=== PATIENT | female | born 1930 | race Caucasian/White ===

== ENCOUNTER 2017-03-23 15:40 | Inpatient (IN) | payer MEDICARE ==
[2017-03-23] MEDS ORDERED: NS 0.9% 1000 ML* 1,000 ML IV ONE ×2 (16:22→16:32)
[2017-03-23] MEDS ORDERED: Diltiazem IV* 5 MG/ML 5 ML VIAL (for loading dose/IV Push) (25 MG) IV SLOW PU ONE (16:24)
[2017-03-23] MEDS ORDERED: Diltiazem IV VIAL* 125 MG in D5W 100 ML BAG* 100 ML IV ONE ×2 (16:24→19:37)
[2017-03-23 16:44] LABS: Hematocrit 42 % (35-47); Hemoglobin 14.2 g/dl (12.0-16.0); Mean Corpuscular HGB Conc 34 g/dl (31-36); Mean Corpuscular Hemoglobin 31 pg (27-31); Mean Corpuscular Volume 91 fL (80-97); Mean Platelet Volume 11 um3 (7.4-10.4); Red Blood Count 4.57 10^6/ul (4.0-5.4); Red Cell Distribution Width 13 % (10.5-15); White Blood Count 8.8 10^3/ul (3.5-10.8)
[2017-03-23 16:50] LABS: Albumin 3.9 g/dL (3.2-5.2); BUN/Creatinine Ratio 17.4 (8-20); EGFR African American 60.9 (>60); EGFR Non-African American 47.4 (>60); Globulin 3.6 g/dL (2-4); Potassium 3.6 mmol/L (3.5-5.0); Total Bilirubin 0.7 mg/dL (0.2-1.0); Total Protein 7.5 g/dL (6.4-8.9)
[2017-03-23 16:55] LABS: Troponin I 0.05 ng/mL (<0.04)
--- NOTE | 2017-03-23 17:04 | RAD ---
INDICATION: CHF, pneumonia. COMPARISON: Comparison is made with a prior study from October 23, 2015. Correlation is also made with a prior chest x-ray study from March 04, 2013. TECHNIQUE: A portable view of the chest was obtained. FINDINGS: The heart appears mildly enlarged and unchanged. The lungs are underinflated. There is mild prominence of the interstitial markings which are unchanged. No focal infiltrate or pleural effusion is seen. IMPRESSION: NO EVIDENCE FOR ACUTE FINDING.
[2017-03-23 17:20] LABS: TSH (Thyroid Stimulating Horm) 1.52 mcIU/mL (0.34-5.60)
[2017-03-23] MEDS ORDERED: Diltiazem TAB* 30 MG ONE (17:43)
[2017-03-23] MEDS ORDERED: Diltiazem TAB* 30 MG PO ONE (17:46)
--- NOTE | 2017-03-23 17:50 | ED ---
Edith Nielsen Edward, scribed for Silvestre Otero MD on 03/23/17 at 1607 . Dizziness - HPI Summary HPI Summary: 86 y/o female presents to the ED c/o sudden onset DAILEY and dizziness starting earlier today while at a alliance party. Pt took a Tylenol and now her DAILEY is resolved. Pt 's dizziness resolved spontaneously, but per the pt's daughter she had another episode while driving up to the ED. Associated sx: fatigue for the past couple of weeks, SOB, chills and numbness in her feet. Denies weakness in arms and legs , slurred speech, CP and palpitations. Pt has Hypotension recorded in 70's systolically at home. Pt is in AFIB in the ED. Non smoker. No EtOH use. No PMHx DM, heart failure. - History Of Current Complaint Chief Complaint: EDDizziness Stated Complaint: NEAR SYNCOPE Time Seen by Provider: 03/23/17 16:05 Hx Obtained From: Patient Timing: Intermittent Episode Lasting Character: Dizzy Associated Signs And Symptoms: Positive: SOB, Chills, Other: - Back pain, DAILEY, dizziness, lightheadedness, numbness in her feet. Negative: Chest Pain, Fever, Slurred Speech - Allergies/Home Medications Allergies/Adverse Reactions: Allergies Allergy/AdvReac Type Severity Reaction Status Date / Time Ciprofloxacin Allergy Intermediate Rash Verified 01/09/16 18:33 Influenza Vaccines Allergy Unknown Unknown Verified 01/09/16 18:33 Reaction Details Pneumococcal Polysaccharides Allergy Unknown elbow Verified 01/09/16 18:33 [From Pneumovax] swelling Atorvastatin [From Lipitor] AdvReac Intermediate muscle Verified 01/09/16 18:33 cramps, nausea, insomnia Codeine AdvReac Intermediate GI Upset Verified 01/09/16 18:33 PMH/Surg Hx/FS Hx/Imm Hx Previously Healthy: No Endocrine/Hematology History: Reports: Hx Thyroid Disease Denies: Hx Diabetes Cardiovascular History: Reports: Hx Hypertension Respiratory History: Denies: Hx Asthma, Hx Chronic Obstructive Pulmonary Disease (COPD) GI History: Denies: Hx Ulcer Sensory History: Reports: Hx Cataracts, Hx Hearing Aid Opthamlomology History: Reports: Hx Cataracts - Surgical History Surgery Procedure, Year, and Place: tonsillectomy/adenoids at 8 years old. appendectomy 7 years ago. hernia repair. stomach lump - patient stated it was removed when she was around 68 years old. cataract surgery '09 - Immunization History Date of Tetanus Vaccine: Unk Date of Influenza Vaccine: Allergic Infectious Disease History: Denies: Hx Clostridium Difficile, Hx Hepatitis, Hx Human Immunodeficiency Virus (HIV), Hx of Known/Suspected MRSA, Hx Shingles, Hx Tuberculosis, Hx Known/ Suspected VRE, Hx Known/Suspected VRSA, History Other Infectious Disease, Traveled Outside the [place] in Last 30 Days - Family History Known Family History: Positive: Cardiac Disease - Social History Alcohol Use: None Hx Substance Use: No Substance Use Type: Reports: None Hx Tobacco Use: No Smoking Status (MU): Never Smoked Tobacco Review of Systems Positive: Chills Eyes: Negative ENT: Negative Cardiovascular: Negative Positive: Shortness Of Breath Gastrointestinal: Negative Genitourinary: Negative Positive: Myalgia - Mid back pain Skin: Negative Neurological: Other - Dizziness, lightheadedness Positive: Headache, Numbness - Feet. Negative: Syncope, Slurred Speech Psychological: Normal All Other Systems Reviewed And Are Negative: Yes Physical Exam - Summary Physical Exam Summary: The patient is well-nourished in no acute distress and in no acute pain. The skin is warm and dry and skin color reflects adequate perfusion. HEENT: The head is normocephalic and atraumatic. The pupils are equal and reactive. The conjunctivae are clear and without drainage. Nares are patent and without drainage. Mouth reveals dry mucous membranes and the throat is without erythema and exudate. Neck is supple with full range of motion and non-tender. There are no carotid bruits. There is no neck vein distension. Respiratory: Chest is non-tender. Lungs are clear to auscultation and breath sounds are symmetrical and equal. Cardiovascular: Hear is irregular and fast. There is no murmur or rub auscultated. There is no peripheral edema and pulses are symmetrical and equal. Abdomen: The abdomen is soft and non-tender. There are normal bowel sounds heard in all four quadrants and there is no organomegaly palpated. Musculoskeletal: There is no back pain noted. Extremities are non-tender with full range of motion. There is good capillary refill. There is no peripheral edema or calf tenderness elicited. Neurological: Patient is alert and oriented to person, place and time. The patient has symmetrical motor strength in all four extremities. Cranial nerves are grossly intact. Deep tendon reflexes are symmetrical and equal in all four extremities. There are no focal neurological deficits. Psychiatric: The patient has an appropriate affect and does not exhibit any anxiety or depression. Triage Information Reviewed: Yes Vital Signs On Initial Exam: Initial Vitals Temp Pulse Resp BP Pulse Ox 97.5 F 107 20 125/92 97 03/23/17 15:45 03/23/17 15:45 03/23/17 15:45 03/23/17 15:45 03/23/17 15:45 Vital Signs Reviewed: Yes Diagnostics - Vital Signs Vital Signs Temp Pulse Resp BP Pulse Ox 03/23/17 16:01 142 94 03/23/17 16:00 130/82 03/23/17 15:45 97.5 F 107 20 125/92 97 - Laboratory Lab Results: Lab Results 03/23/17 03/23/17 03/23/17 Range/Units 16:20 16:20 16:20 WBC 8.8 (3.5-10.8) 10^3/ul RBC 4.57 (4.0-5.4) 10^6/ul Hgb 14.2 (12.0-16.0) g/dl Hct 42 (35-47) % MCV 91 (80-97) fL MCH 31 (27-31) pg MCHC 34 (31-36) g/dl RDW 13 (10.5-15) % Plt Count 187 (150-450) 10^3/ul MPV 11 H (7.4-10.4) um3 Neut % (Auto) 63.1 (38-83) % Lymph % (Auto) 25.9 (25-47) % [place] % (Auto) 7.9 (1-9) % Eos % (Auto) 2.7 (0-6) % Baso % (Auto) 0.4 (0-2) % Absolute Neuts (auto) 5.5 (1.5-7.7) 10^3/ul Absolute Lymphs (auto) 2.3 (1.0-4.8) 10^3/ul Absolute Monos (auto) 0.7 (0-0.8) 10^3/ul Absolute Eos (auto) 0.2 (0-0.6) 10^3/ul Absolute Basos (auto) 0 (0-0.2) 10^3/ul Absolute Nucleated RBC 0.01 10^3/ul Nucleated RBC % 0.1 INR (Anticoag Therapy) (0.89-1.11) Sodium 138 (133-145) mmol/L Potassium 3.6 (3.5-5.0) mmol/L Chloride 104 (101-111) mmol/L Carbon Dioxide 26 (22-32) mmol/L Anion Gap 8 (2-11) mmol/L BUN 19 (6-24) mg/dL Creatinine 1.09 H (0.51-0.95) mg/dL Est GFR ( Amer) 60.9 (>60) Est GFR (Non-Af Amer) 47.4 (>60) BUN/Creatinine Ratio 17.4 (8-20) Glucose 120 H (70-100) mg/dL Lactic Acid (0.5-2.0) mmol/L Calcium 10.0 (8.6-10.3) mg/dL Magnesium 2.0 (1.9-2.7) mg/dL Total Bilirubin 0.70 (0.2-1.0) mg/dL AST 20 (13-39) U/L ALT 8 (7-52) U/L Alkaline Phosphatase 70 (34-104) U/L Troponin I 0.05 H* (<0.04) ng/mL B-Natriuretic Peptide 539 H ( - 100) pg/mL Total Protein 7.5 (6.4-8.9) g/dL Albumin 3.9 (3.2-5.2) g/dL Globulin 3.6 (2-4) g/dL Albumin/Globulin Ratio 1.1 (1-3) TSH 1.52 (0.34-5.60) mcIU/mL 03/23/17 03/23/17 Range/Units 16:20 16:20 WBC (3.5-10.8) 10^3/ul RBC (4.0-5.4) 10^6/ul Hgb (12.0-16.0) g/dl Hct (35-47) % MCV (80-97) fL MCH (27-31) pg MCHC (31-36) g/dl RDW (10.5-15) % Plt Count (150-450) 10^3/ul MPV (7.4-10.4) um3 Neut % (Auto) (38-83) % Lymph % (Auto) (25-47) % [place] % (Auto) (1-9) % Eos % (Auto) (0-6) % Baso % (Auto) (0-2) % Absolute Neuts (auto) (1.5-7.7) 10^3/ul Absolute Lymphs (auto) (1.0-4.8) 10^3/ul Absolute Monos (auto) (0-0.8) 10^3/ul Absolute Eos (auto) (0-0.6) 10^3/ul Absolute Basos (auto) (0-0.2) 10^3/ul Absolute Nucleated RBC 10^3/ul Nucleated RBC % INR (Anticoag Therapy) 0.93 (0.89-1.11) Sodium (133-145) mmol/L Potassium (3.5-5.0) mmol/L Chloride (101-111) mmol/L Carbon Dioxide (22-32) mmol/L Anion Gap (2-11) mmol/L BUN (6-24) mg/dL Creatinine (0.51-0.95) mg/dL Est GFR ( Amer) (>60) Est GFR (Non-Af Amer) (>60) BUN/Creatinine Ratio (8-20) Glucose (70-100) mg/dL Lactic Acid 1.3 (0.5-2.0) mmol/L Calcium (8.6-10.3) mg/dL Magnesium (1.9-2.7) mg/dL Total Bilirubin (0.2-1.0) mg/dL AST (13-39) U/L ALT (7-52) U/L Alkaline Phosphatase (34-104) U/L Troponin I (<0.04) ng/mL B-Natriuretic Peptide ( - 100) pg/mL Total Protein (6.4-8.9) g/dL Albumin (3.2-5.2) g/dL Globulin (2-4) g/dL Albumin/Globulin Ratio (1-3) TSH (0.34-5.60) mcIU/mL Result Diagrams: 03/23/17 16:20 03/23/17 16:20 Lab Statement: Any lab studies that have been ordered have been reviewed, and results considered in the medical decision making process. - Radiology CXR Xray Interpretation: No Acute Changes - NO EVIDENCE FOR ACUTE FINDINGS. ED PHYSICIAN AGREEABLE Radiology Interpretation Completed By: Radiologist - EKG 1 ST Segment: Non-Specific EKG Interpretation: 15:51 - AFIB @ [address] changes. Re-Evaluation - Re-Evaluation 1 Re-Evaluation Time: 17:25 Comment: Patient and family are agreeable for admission Dizzy Course/Dx - Course Assessment/Plan: 86 y/o female presents to the ED c/o sudden onset DAILEY and dizziness starting earlier today while at a alliance party. Pt took a Tylenol and now her DAILEY is resolved. Pt's dizziness resolved spontaneously, but per the pt's daughter she had another episode while driving up to the ED. Associated sx: fatigue for the past couple of weeks, SOB, chills and numbness in her feet. Denies weakness in arms and legs, slurred speech, CP and palpitations. Pt has Hypotension recorded in 70's systolically at home. Pt is in AFIB in the ED. Non smoker. No EtOH use. No PMHx DM, heart failure. EKG 15:51 - AFIB @ [address] changes. CXR SHOWS NO EVIDENCE FOR ACUTE FINDINGS. ED PHYSICIAN AGREEABLE. Pt's Troponin @ 16:20 is elevated at 0.05. At 17:20, spoke with Dr. Washington who agreed to admit the patient to [facility]. - Diagnoses Differential Diagnosis/HQI/PQRI: Benign Paroxysmal Positional Vertigo, Coronary Artery Disease, Dysrhythmia, Hypovolemia, Myocardial Infarction, Other - Elevated troponin, atrial fibrillation with RVR Provider Diagnoses: Atrial fibrillation with rapid ventricular response - Provider Notifications Discussed Care Of Patient With: Maria Washington Time Discussed With Above Provider: 17:20 Instructed by Provider To: Admit As Inpatient - Critical Care Time Critical Care Time: 30-74 min - 30 minutes Discharge - Discharge Plan Condition: Stable Disposition: ADMITTED TO [facility] Referrals: Meron Heart MD [Primary Care Provider] - The documentation as recorded by the Edith manriquez Edward accurately reflects the service I personally performed and the decisions made by me, Silvestre Otero MD.
[2017-03-23] MEDS ORDERED: Ondansetron INJ* 2 MG/ML VIAL IV PRN (18:18)
[2017-03-23] MEDS ORDERED: Potassium Chlor TAB* 20 MEQ TAB.ER PO ONE (18:18)
[2017-03-23] MEDS ORDERED: Acetaminophen TAB* 325 MG PO PRN (18:18)
[2017-03-23] MEDS ORDERED: Apixaban* 5 MG TAB PO SCH (18:19)
--- NOTE | 2017-03-23 19:00 | RAD ---
INDICATION: Headache. COMPARISON: Comparison is made with a prior CT of the brain from March 11, 2014. TECHNIQUE: Contiguous axial sections of the brain were obtained from the skull base to the vertex without contrast. FINDINGS: The ventricles, cisterns and sulci are enlarged consistent with diffuse atrophy. There are small areas of decreased density in the subcortical and periventricular white matter suggestive of mild chronic small vessel ischemic changes. There is no evidence for hemorrhage. No significant focal osseous abnormality is seen. The visualized portion of the paranasal sinuses and mastoid air cells appear clear. IMPRESSION: NO EVIDENCE FOR ACUTE INTRACRANIAL ABNORMALITY.
[2017-03-23] MEDS ORDERED: Iodixanol* (CONTRAST) 320 MG/ML 100 ML SDV IV ONE (19:47)
[2017-03-23] MEDS ORDERED: Diltiazem DRIP* 100 MG/100 ML ADDV.BAG IVPB SCH (20:00)
[2017-03-23] MEDS ORDERED: Atropine SYRINGE* 0.1 MG/ML 10 ML SYRINGE (1 MG) IV PRN (21:49)
[2017-03-23] MEDS ORDERED: Atropine 1MG/ML INJ* 1 ML VIAL IV PUSH PRN (21:49)
--- NOTE | 2017-03-23 22:09 | HP ---
CC: Dr. Heart; Dr. Luevano * HISTORY AND PHYSICAL: DATE OF ADMISSION: 03/23/17 PRIMARY CARE PROVIDER: Dr. Heart. ATTENDING PHYSICIAN WHILE IN THE HOSPITAL: Dr. Manuel Vega * (report being dictated by Herbert Gonzales NP). CHIEF COMPLAINT: Dizziness. HISTORY OF PRESENTING ILLNESS: Mrs. Wheat is an 86-year-old female patient. She has a history of hypothyroidism, dementia, hypertension, and hyperlipidemia. She comes in today stating that this morning, she felt dizzy, very lightheaded. She was not feeling good. She could feel her heart pounding. She told her daughter and they brought her into the hospital. On interviewing the patient, she says that she does remember feeling like her heart pounding maybe in the last couple of days off and on, she is not sure. She does have mild dementia. She denies having any chest pain. No recent trips or travel. No shortness of breath. No swelling of one leg. No recent surgeries. She ultimately came in and was found to have right bundle branch block, which appeared to be new. In addition to this, was found to be in AFib with RVR, which was new for the patient, so we were asked to evaluate for admission. She denies any change in medications. She denies having any recent fevers or chills, or any nausea, vomiting, or diarrhea. PAST MEDICAL HISTORY: Significant for: 1. Hypothyroidism. 2. Dementia. 3. Hypertension. 4. Hyperlipidemia. PAST SURGICAL HISTORY: She has had an: 1. Appendectomy. 2. Exploratory laparotomy. 3. Hernia repair. 4. Tonsillectomy. MEDICATIONS: Her home meds according to her pill bottles include: 1. Aspirin 81 mg daily. 2. Ramipril 10 mg daily. 3. Amlodipine 2.5 mg daily. 4. Synthroid 75 mcg daily. 5. Namenda 5 mg p.o. b.i.d. ALLERGIES: Her allergies to medications include FLU VACCINE, CIPRO, PNEUMOCOCCAL VACCINE, LIPITOR, and CODEINE. FAMILY HISTORY: Mother had a history of [place]'s chorea. Father had a history of [place]. SOCIAL HISTORY: She does not smoke, does not drink. Surrogate decision maker is her daughter. REVIEW OF SYSTEMS: There is no documented fever. She denied having any significant weight change. There was no ear discharge. She denies having any ear discharge. There is no rhinorrhea. No sore throat. No thyroid enlargement. She denies having any chest pain. There was no orthopnea. There was no nocturnal dyspnea. There was no abdominal pain. No nausea, no vomiting , no dysuria, no frequency. There was no loss of consciousness, no pruritus, and no skin ulcerations. Review of 14 systems completed, all others negative. PHYSICAL EXAMINATION GENERAL: At this time, Mrs. Wheat is an 86-year-old female patient. She is sitting in the ER stretcher. She appears to be well nourished, well nourished. She does not appear to be in any acute distress. VITAL SIGNS: Reveals blood pressure 103/91 with a pulse of 108, respirations 16 , O2 sat 96%, temperature 98.1. Her heart rate now was noted to be rated around 90 to 100. HEENT: Head atraumatic, normocephalic. Eyes: EOMs are intact. Sclerae anicteric. Throat: Oral mucosa appears to be moist. No oropharyngeal erythema. NECK: Supple. LUNGS: Clear to auscultation bilaterally. No wheezes, rales, or rhonchi. HEART: Sounds S1, S2. Irregularly irregular rate. No murmurs, rubs, or gallops. ABDOMEN: Soft, flat, nontender. Bowel sounds present. EXTREMITIES: Pulses were 2+ throughout. She had no peripheral edema. She is able to move all 4 extremities with 5/5 strength. NEUROLOGIC: The patient is awake, alert, oriented x3. Assembly Line Worker were equal. Speech is clear. No gross focal deficits. SKIN: Intact. LABORATORY DATA/DIAGNOSTIC STUDIES: Revealed WBC of 8.8, RBC of 4.57, hemoglobin of 14.2, hematocrit of 42, platelet count of 187,000. INR 0.93. Sodium was 138, potassium of 3.6, chloride of 104, bicarb 26, BUN 19, creatinine of 1.09, glucose of 120. Lactate 1.3. Calcium 10, mag 2.0. Total bili 0.7, AST 20, ALT 8, alk phos 70. Troponin was 0.08. BNP was 539. Albumin was 3.9. TSH was 1.52. She did have a chest x-ray obtained today, report read no evidence for acute findings. She had serial EKGs, most recent EKG does show atrial fibrillation, rate of 103. She does have LVH. It looks like she has J-point elevation and she has inverted T waves in V1, V2, and V3. She has right bundle branch block. The right bundle branch block does appear to be new. She has had biphasic T waves in V2 and V3 and inverted in V1 in the past, but again the right bundle branch block is new, the LVH is not new. Old medical records were reviewed. ASSESSMENT AND PLAN: Mrs. Wheat is an 86-year-old female patient coming into the ER today with complaints of dizziness and palpitations over the last 2 to 3 days. Dizziness happened today. She came into the ER and was evaluated and found to be in atrial fibrillation with rapid ventricular response. She will be admitted under observation status for: 1. Atrial fibrillation with rapid ventricular response. I did touch base with Dr. Luevano. The plan will be to go ahead and put her on diltiazem 30 mg every 6 hours to see if we can control her rate; if not, we will go ahead and I will get her potassium up to 4. Dr. Luevano will evaluate her tomorrow. We may need to consider doing a GABBIE-guided cardioversion. I did put her on Eliquis at 2.5 mg p.o. b.i.d. as her weight is 60 kg and she is over the age of 78 and we will follow with her closely. 2. Hypothyroidism. TSH is stable, continue Synthroid. 3. Dementia. Continue with supportive care and her Namenda. 4. Hypertension. She will be on diltiazem. I am holding her amlodipine because she is on a new calcium channel [place] now, and we will go ahead and continue her ramipril, and we will continue to follow. 5. DVT prophylaxis. She will be on Eliquis. 6. Elevated troponins. Probably demand ischemia, which is probably also driving the right bundle branch block. I will, however, check a D-dimer; if this is elevated, then we would need to consider doing a CTA, obviously paying close attention kidney functions as her baseline creatinine is 1.09 and her GFR is 47. We will monitor. 7. Code status. She is a DNR. 8. Fluids, electrolytes, and nutrition. She can have a heart healthy diet. TIME SPENT: Time spent on the admission, 60 minutes, greater than half the time spent [id number] with the patient obtaining my history and physical, the other half the time spent going over the plan of care with the patient and implementing the plan of care. I did discuss the plan of care with my attending, Dr. Vega; he is in agreement. HERBERT GONZALES NP [id number]/CPS #: [id number] ALEX
[2017-03-23] MEDS: Apixaban* 2.5 MG TAB PO SCH (23:21)
[2017-03-23] MEDS: Memantine TAB* 5 MG PO SCH (23:22)
[2017-03-24] MEDS ORDERED: Diltiazem TAB* 30 MG PO SCH
[2017-03-24 05:33] LABS: Hematocrit 37 % (35-47); Hemoglobin 12.5 g/dl (12.0-16.0); Mean Corpuscular HGB Conc 34 g/dl (31-36); Mean Corpuscular Hemoglobin 31 pg (27-31); Mean Corpuscular Volume 92 fL (80-97); Mean Platelet Volume 11 um3 (7.4-10.4); Red Blood Count 4.01 10^6/ul (4.0-5.4); Red Cell Distribution Width 13 % (10.5-15); White Blood Count 5.6 10^3/ul (3.5-10.8)
[2017-03-24 05:50] LABS: BUN/Creatinine Ratio 19.5 (8-20); Calcium 9.4 mg/dL (8.6-10.3); EGFR African American 84.6 (>60); EGFR Non-African American 65.8 (>60); Potassium 3.9 mmol/L (3.5-5.0)
[2017-03-24] MEDS: Levothyroxine TAB* 75 MCG TAB PO SCH (05:53)
--- NOTE | 2017-03-24 07:30 | RAD ---
INDICATION: Right bundle branch block, new onset atrial fibrillation. COMPARISON: Comparison is made with a prior chest x-ray study from March 23, 2017. TECHNIQUE: A CT angiogram of the chest was performed with intravenous following intravenous injection of 66 ml of Visipaque 320 nonionic contrast. Contiguous axial sections were obtained from the lung apices through the lung bases. Images were reconstructed in the coronal and sagittal planes. FINDINGS: There is relatively homogeneous opacification of the pulmonary arteries. No intraluminal filling defect or pulmonary embolism is seen. The heart is within normal limits in size. There are coronary artery calcifications. No pericardial effusion is present. There is reflux of contrast into the inferior vena cava and hepatic veins suggesting the possibility of right heart failure. The aorta is normal in caliber. There is mild to moderate calcific plaque present. No significant enlarged mediastinal or hilar lymph nodes are seen. There are several small calcified mediastinal and hilar lymph nodes consistent with old granulomatous disease. There is mild prominence of the interstitial markings in the periphery of the lungs most consistent with chronic interstitial lung disease. No focal infiltrate or pleural effusion is seen. There is a [id number] dorsal scoliosis convex toward the right side. No significant focal osseous abnormality is seen. IMPRESSION: 1. NO EVIDENCE FOR PULMONARY EMBOLISM. 2. FINDINGS SUGGESTIVE OF CHRONIC INTERSTITIAL LUNG DISEASE.
[2017-03-24] MEDS: Aspirin Low Dose CHEW TAB* 81 MG PO SCH (09:22)
[2017-03-24] MEDS: Apixaban* 2.5 MG TAB PO SCH ×2 (09:22→21:19)
[2017-03-24] MEDS: Ramipril CAP* 10 MG PO SCH (09:22)
[2017-03-24 11:52] LABS: Urine Bacteria Absent (Absent); Urine Bilirubin Negative (Negative); Urine Glucose Negative (Negative); Urine Nitrite Negative (Negative)
[2017-03-24] MEDS: Amiodarone TAB* 200 MG PO SCH ×2 (12:24→21:20)
--- NOTE | 2017-03-24 12:38 | PN ---
Subjective Date of Service: 03/24/17 Interval History: Patient seen this morning. No complaints at this time. Dizziness and headache have resolved. Understands AFib and conversion back to NSR and plans for next days. Family History: Unchanged from Admission Social History: Unchanged from Admission Past Medical History: Unchanged from Admission Objective Active Medications: Acetaminophen (Tylenol Tab*) 650 mg PO Q4H PRN Amiodarone HCl (Cordarone Tab*) 200 mg PO BID YESSENIA Apixaban (Eliquis) 2.5 mg PO BID YESSENIA Aspirin (Aspirin Low Dose Tab*) 81 mg PO DAILY YESSENIA Levothyroxine Sodium (Synthroid Tab*) 75 mcg PO 0600 YESSENIA Memantine (Namenda Tab*) 5 mg PO BID YESSENIA Ondansetron HCl (Zofran Inj*) 4 mg IV Q6H PRN Ramipril (Altace Cap*) 10 mg PO DAILY YESSENIA Vital Signs 03/23/17 03/23/17 03/23/17 17:25 17:31 17:35 Temperature Pulse Rate 85 88 106 Respiratory 18 19 23 Rate Blood Pressure 101/62 111/70 101/77 (mmHg) O2 Sat by Pulse 97 97 94 Oximetry 03/23/17 03/23/17 03/23/17 20:30 20:31 20:37 Temperature Pulse Rate Respiratory Rate Blood Pressure 109/79 121/76 114/73 (mmHg) O2 Sat by Pulse Oximetry 03/24/17 03/24/17 03/24/17 08:00 09:10 11:21 Temperature 97.7 F Pulse Rate 68 Respiratory 16 18 Rate Blood Pressure 147/66 (mmHg) O2 Sat by Pulse 98 98 Oximetry Oxygen Devices in Use Now: None Appearance: Elderly, F, sitting in bed in NAD Eyes: No Scleral Icterus Ears/Nose/Mouth/Throat: Mucous Membranes Moist Neck: NL Appearance and Movements; NL JVP Respiratory: Symmetrical Chest Expansion and Respiratory Effort, Clear to Auscultation Cardiovascular: NL Sounds; No Murmurs; No JVD, RRR Abdominal: NL Sounds; No Tenderness; No Distention Lymphatic: No Cervical Adenopathy Extremities: No Edema Skin: No Rash or Ulcers Neurological: Alert and Oriented x 3 Result Diagrams: 03/24/17 05:08 03/24/17 05:08 Assess/Plan/Problems-Billing Assessment: Afib with RVR, demand mediated NSTEMI in an 86 yo F with hx of HTN, HLD, hypothyroidism, dementia - Patient Problems (1) Afib Current Visit: Yes Comment: with RVR. Converted to NSR overnight after starting on Dilt gtt. Had some pauses and bradycardia after conversion, longest ~4-5 seconds. Appreciate Cardiology assistance, started on PO Amiodarone by Dr. Luevano. Plan for echo and NST. Continue Eliquis. Continue to monitor on tele. (2) Elevated troponin Current Visit: No Comment: Likely demand from AFib/RVR. Trend to peak. No chest pain. Echo and NST as above. (3) Hypothyroid Current Visit: No Comment: Continue Levothyroxine (4) Dementia Current Visit: No Comment: Continue Namenda (5) Hypertension Current Visit: No Comment: Continue Ramipril. May need to add back Norvasc as well. (6) DVT prophylaxis Current Visit: No Comment: Eliquis Status and Disposition: Inpatient for AFib, troponin elevation
[2017-03-24] MEDS: Memantine TAB* 5 MG PO SCH ×2 (14:01→21:20)
--- NOTE | 2017-03-24 14:34 | CONS ---
CARDIOLOGY CONSULTATION: DATE OF CONSULT: 03/24/17 INDICATION FOR CONSULTATION: Atrial fibrillation. HISTORY OF PRESENT ILLNESS: The patient is a relatively healthy 86-year-old female, who came to the emergency room because of episodes of dizziness. The patient was describing episodes of poor emilia ce and ambulation and her daughters took her blood pressure, her blood pressure was 88/50 and the de cision was to come to the emergency room. On arrival to the emergency room, the patient was in rapi d atrial fibrillation with mild ST segment depressions. The patient was given diltiazem IV and p.o. and ultimately converted to normal sinus rhythm. The patient did have some bradycardia after conve rsion to normal sinus rhythm, but since then has not had any other episodes. In speaking with the p atient today, she is actually doing very well. She says she feels well. She denies any chest pain. She denies any palpitations. She denies any lightheadedness, dizziness, or syncope. PAST MEDICAL HISTORY: Significant for hypothyroidism, dementia, hypertension. PAST SURGICAL HISTORY: Appendectomy, hernia repair, tonsillectomy. OUTPATIENT MEDICATIONS: 1. Aspirin 81 mg a day. 2. Ramipril 10 mg a day. 3. Amlodipine 2.5 mg a day. 4. Synthroid 75 mcg a day. 5. Namenda 10 mg b.i.d. ALLERGIES: She is intolerant of FLU VACCINE, CIPRO, and LIPITOR. FAMILY HISTORY: Mother had a history of [place]'s. Father had a history of myocardial infarctio n. SOCIAL HISTORY: She currently lives at a half-way. She denies tobacco or alcohol use. She has 3 daughters who are involved in her care. PHYSICAL EXAM: Height is 5 feet 7 inches, weight is 131 pounds. Heart rate 66, blood pressure 151/ 67, temperature 98.2, respiratory rate 16, oxygen saturation 99% on room air. Sclerae anicteric. O ropharynx is pink without erythema. Carotids are 2+ without bruits. JVD is normal. Thyroid is nor mal. Cardiac Exam: S1, S2 without any murmurs, rubs or gallops. Lungs: Clear to auscultation kristen aterally. There is no dullness to percussion. Abdomen: Soft, nontender, nondistended with normoact mandy bowel sounds. Extremities: Show no edema. She has 2+ pulses throughout. The patient is awake , alert, and oriented. She moves all 4 extremities equally. DIAGNOSTIC STUDIES/LAB DATA: CBC within normal limits. Chemistries within normal limits. Initial troponin 0.05, peak troponin 2.04. TSH 1.52. IMPRESSION: This is an 86-year-old female who came to the emergency room because of episodes of diz ziness and low blood pressure and was found to be in atrial fibrillation with rapid ventricular resp onse. In speaking with the patient today, she is actually feeling well. She denies any cardiac sym ptoms. For now, my recommendation is that she start on Eliquis, she was started on this yesterday. I did t alk to the patient about treatment of her atrial fibrillation. I think given her symptomatic present ation of her atrial fibrillation, I would like to start amiodarone 200 mg b.i.d. with close observat ion of her heart rate. 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 Because of her elevated troponin level, the patient will undergo a chemical nuclear stress test vin this hospitalization. Further recommendations pending results of her echocardiogram and stress t est. This was discussed with Dr. Asher Ayala. [id number]/[facility] #: [id number]
[2017-03-25] MEDS: Levothyroxine TAB* 75 MCG TAB PO SCH (07:24)
[2017-03-25] MEDS: Apixaban* 2.5 MG TAB PO SCH ×2 (10:59→22:28)
[2017-03-25] MEDS: Aspirin Low Dose CHEW TAB* 81 MG PO SCH (10:59)
[2017-03-25] MEDS: Amiodarone TAB* 200 MG PO SCH ×2 (11:01→22:28)
[2017-03-25] MEDS: Memantine TAB* 5 MG PO SCH ×2 (11:01→22:28)
[2017-03-25] MEDS: Ramipril CAP* 10 MG PO SCH (11:01)
--- NOTE | 2017-03-25 12:33 | ECHO ---
Patient: CARLOS MANN [facility] Rec#: [id number] : 1930 Date: 03/25/2017 Age: 86y Height: 170.18 cm / 67.0 in Weight: 59.42 kg / 131.0 lbs Sex: F BSA: 1.69 Room#: 439 Admit Date#: 03/24/2017 Type: Inpatient Referring: AMAYA GHOTRA MD Reading: Rigoberto Luevano MD Fan Blade Aligner: Mariel Ignacio RDCS CC: Meron Heart MD Transthoracic Echocardiogram Indication: A-fib BP: 147/66 HR: 63 Rhythm: NSR Findings History: Hyopthyroid, dementia, HTN, HLD. Technical Comments: The study quality is fair. The study is technically limited due to patient body habitus. Completed at 1200. Left Ventricle: The left ventricular chamber size is normal. Septal wall hypertrophy is observed. There is increased basal septal hypertrophy noted without evidence of an increased gradient across the left ventricular outflow tract. Mild global hypokinesis of the left ventricle is observed. There is mildly decreased left ventricular systolic function. The estimated ejection fraction is 45-50%. There is no consistent Doppler evidence of clinically significant diastolic dysfunction. Left Atrium: The left atrium is severely dilated. Right Ventricle: The right ventricular cavity size is normal. The right ventricular global systolic function is mildly reduced. Right Atrium: The right atrial cavity size is normal. There is a patent foramen ovale with predominant [id number] shunting. A patent foramen ovale is demonstrated by color Doppler. There is evidence of an atrial septal aneurysm. Aortic Valve: The aortic valve is trileaflet. The aortic valve leaflets are mildly thickened. There is mild aortic regurgitation. There is no evidence of aortic stenosis. Mitral Valve: There is mitral annular calcification. The mitral valve leaflets are moderately thickened. There is mild mitral regurgitation. There is no evidence of mitral stenosis. Tricuspid Valve: The tricuspid valve leaflets are moderately thickened. There is mild to moderate tricuspid regurgitation. The right ventricular systolic pressure is estimated at 19 mmHg. There is evidence that pulmonary hypertension may be underestimated. There is no tricuspid stenosis. Pulmonic Valve: The pulmonic valve appears normal. There is a trace pulmonic regurgitation. There is no pulmonic stenosis. Pericardium: There is no significant pericardial effusion. Aorta: There is no dilatation of the ascending aorta. There is no dilatation of the aortic arch. The aortic root is normal in size. Pulmonary Artery: The main pulmonary artery appears normal. Venous: The inferior vena cava appears normal in size. There is a greater than 50% respiratory change in the inferior vena cava dimension. Conclusions Mild global hypokinesis of the left ventricle is observed. There is mildly decreased left ventricular systolic function. There is increased basal septal hypertrophy noted without evidence of an increased gradient across the left ventricular outflow tract. The estimated ejection fraction is 45-50%. The right ventricular global systolic function is mildly reduced. There is evidence of an atrial septal aneurysm. There is a patent foramen ovale with predominant [id number] shunting. There is mild aortic regurgitation. There is mild mitral regurgitation. There is mild to moderate tricuspid regurgitation. The right ventricular systolic pressure is estimated at 19 mmHg. There is no significant pericardial effusion. Measurements Name Value Normal Range RVIDd (AP) 2D 3.3 cm (0.9 - 2.6) RVDdMajor (2D) 3 cm (2.2 - 4.4) RAd ISD 4CH 4.6 cm (3.4 - 4.9) RA (A4C)W 3.5 cm (2.9 - 4.6) IVSd (2D) 1.6 cm (0.6 - 1) LVPWd (2D) 0.8 cm (0.6 - 1) LVIDd (2D) 4.2 cm (3.6 - 5.4) LVIDs (2D) 2.3 cm - LV FS (2D) 45 % (25 - 45) Aortic Annulus 1.8 cm (1.4 - 2.6) Ao root diameter (2D) 2.9 cm (2.1 - 3.5) Ascending Ao 3.2 cm (2.1 - 3.4) Aortic arch 2.5 cm (1.8 - 3.4) LA dimension (AP) 2D 4.5 cm (2.3 - 3.8) LAd ISD 4CH 5.7 cm (2.9 - 5.3) LA ISD 4CH W 5.1 cm (2.5 - 4.5) Name Value Normal Range LA ESV SP 4CH (A/L) 87 ml - LA ESV SP 2CH (A/L) 78 ml - LA ESV BP (A/L) 87 ml - LA ESV BP (A/L) index 51.75 ml/m2 - LA ESV SP 4CH (MOD) 79 ml - LA ESV SP 2CH (MOD) 74 ml - Name Value Normal Range MV E-wave Vmax 0.64 m/sec - MV deceleration time 289.4 msec - MV A-wave Vmax 0.31 m/sec - MV E:A ratio 2.05 ratio - LV septal e' Vmax 0.03 m/sec - LV lateral e' Vmax 0.05 m/sec - LV E:e' septal ratio 21.33 ratio - LV E:e' lateral ratio 12.8 ratio - Name Value Normal Range AV Vmax 1.1 m/sec - AV VTI 24 cm - AV peak gradient 4.83 mmHg - AV mean gradient 2.8 mmHg - LVOT Vmax 0.82 m/sec - LVOT VTI 17.87 cm - LVOT peak gradient 2.72 mmHg - LVOT mean gradient 1.41 mmHg - AR PHT 549 msec - AR peak gradient 50 mmHg - LILIANA Vmax 0.4 m/sec - Name Value Normal Range TR Vmax 2 m/sec - TR peak gradient 16 mmHg - RAP 3 mmHg - RVSP 19 mmHg - IVC diameter 1.8 cm - Name Value Normal Range PV Vmax 0.47 m/sec - PV peak gradient 0.9 mmHg -
--- NOTE | 2017-03-25 13:13 | PN ---
Subjective Date of Service: 03/25/17 Interval History: No chest pian, cough, SOB, palpitations, dizziness. No new c/o. She was not aware of rapid heartrate when in a fib, c/o headache then. Family History: Unchanged from Admission Social History: Unchanged from Admission Past Medical History: Unchanged from Admission Objective Active Medications: Acetaminophen (Tylenol Tab*) 650 mg PO Q4H PRN PRN Reason: FEVER/PAIN Amiodarone HCl (Cordarone Tab*) 200 mg PO BID [facility] Last Admin: 03/25/17 11:01 Dose: 200 mg Apixaban (Eliquis) 2.5 mg PO BID [facility] Last Admin: 03/25/17 10:59 Dose: 2.5 mg Aspirin (Aspirin Low Dose Tab*) 81 mg PO DAILY [facility] Last Admin: 03/25/17 10:59 Dose: 81 mg Levothyroxine Sodium (Synthroid Tab*) 75 mcg PO 0600 [facility] Last Admin: 03/25/17 07:24 Dose: 75 mcg Memantine (Namenda Tab*) 5 mg PO BID [facility] Last Admin: 03/25/17 11:01 Dose: 5 mg Ondansetron HCl (Zofran Inj*) 4 mg IV Q6H PRN PRN Reason: NAUSEA Ramipril (Altace Cap*) 10 mg PO DAILY [facility] Last Admin: 03/25/17 11:01 Dose: 10 mg Vital Signs 03/25/17 03/25/17 03/25/17 03:48 07:40 08:00 Temperature 97.9 F 98.6 F Pulse Rate 55 58 Respiratory 16 16 16 Rate Blood Pressure 127/60 125/61 (mmHg) O2 Sat by Pulse 97 97 Oximetry Oxygen Devices in Use Now: None Appearance: Alert, partly up in bed. In good spirits. Looks comfortable. Neck: NL Appearance and Movements; NL JVP, No Thyroid Enlargement, Masses Respiratory: Symmetrical Chest Expansion and Respiratory Effort, Clear to Auscultation, Clear to Percussion Cardiovascular: NL Sounds; No Murmurs; No JVD, RRR, No Edema, - Extremities: No Edema, No Clubbing, Cyanosis, - Skin: No Rash or Ulcers, No Nodules or Sclerosis, - Neurological: Alert and Oriented x 3, NL Sensation Result Diagrams: 03/24/17 05:08 09/03/17 05:08 Additional Lab and Data: Lab Results 03/23/17 03/23/17 03/23/17 Range/Units 16:20 16:20 16:20 WBC 8.8 (3.5-10.8) 10^3/ul RBC 4.57 (4.0-5.4) 10^6/ul Hgb 14.2 (12.0-16.0) g/dl Hct 42 (35-47) % MCV 91 (80-97) fL MCH 31 (27-31) pg MCHC 34 (31-36) g/dl RDW 13 (10.5-15) % Plt Count 187 (150-450) 10^3/ul MPV 11 H (7.4-10.4) um3 Neut % (Auto) 63.1 (38-83) % Lymph % (Auto) 25.9 (25-47) % Wood % (Auto) 7.9 (1-9) % Eos % (Auto) 2.7 (0-6) % Baso % (Auto) 0.4 (0-2) % Absolute Neuts (auto) 5.5 (1.5-7.7) 10^3/ul Absolute Lymphs (auto) 2.3 (1.0-4.8) 10^3/ul Absolute Monos (auto) 0.7 (0-0.8) 10^3/ul Absolute Eos (auto) 0.2 (0-0.6) 10^3/ul Absolute Basos (auto) 0 (0-0.2) 10^3/ul Absolute Nucleated RBC 0.01 10^3/ul Nucleated RBC % 0.1 INR (Anticoag Therapy) (0.89-1.11) Sodium 138 (133-145) mmol/L Potassium 3.6 (3.5-5.0) mmol/L Chloride 104 (101-111) mmol/L Carbon Dioxide 26 (22-32) mmol/L Anion Gap 8 (2-11) mmol/L BUN 19 (6-24) mg/dL Creatinine 1.09 H (0.51-0.95) mg/dL Est GFR ( Amer) 60.9 (>60) Est GFR (Non-Af Amer) 47.4 (>60) BUN/Creatinine Ratio 17.4 (8-20) Glucose 120 H (70-100) mg/dL Lactic Acid (0.5-2.0) mmol/L Calcium 10.0 (8.6-10.3) mg/dL Magnesium 2.0 (1.9-2.7) mg/dL Total Bilirubin 0.70 (0.2-1.0) mg/dL AST 20 (13-39) U/L ALT 8 (7-52) U/L Alkaline Phosphatase 70 (34-104) U/L Troponin I 0.05 H* (<0.04) ng/mL B-Natriuretic Peptide 539 H ( - 100) pg/mL Total Protein 7.5 (6.4-8.9) g/dL Albumin 3.9 (3.2-5.2) g/dL Globulin 3.6 (2-4) g/dL Albumin/Globulin Ratio 1.1 (1-3) TSH 1.52 (0.34-5.60) mcIU/mL 03/23/17 03/23/17 Range/Units 16:20 16:20 WBC (3.5-10.8) 10^3/ul RBC (4.0-5.4) 10^6/ul Hgb (12.0-16.0) g/dl Hct (35-47) % MCV (80-97) fL MCH (27-31) pg MCHC (31-36) g/dl RDW (10.5-15) % Plt Count (150-450) 10^3/ul MPV (7.4-10.4) um3 Neut % (Auto) (38-83) % Lymph % (Auto) (25-47) % Wood % (Auto) (1-9) % Eos % (Auto) (0-6) % Baso % (Auto) (0-2) % Absolute Neuts (auto) (1.5-7.7) 10^3/ul Absolute Lymphs (auto) (1.0-4.8) 10^3/ul Absolute Monos (auto) (0-0.8) 10^3/ul Absolute Eos (auto) (0-0.6) 10^3/ul Absolute Basos (auto) (0-0.2) 10^3/ul Absolute Nucleated RBC 10^3/ul Nucleated RBC % INR (Anticoag Therapy) 0.93 (0.89-1.11) Sodium (133-145) mmol/L Potassium (3.5-5.0) mmol/L Chloride (101-111) mmol/L Carbon Dioxide (22-32) mmol/L Anion Gap (2-11) mmol/L BUN (6-24) mg/dL Creatinine (0.51-0.95) mg/dL Est GFR ( Amer) (>60) Est GFR (Non-Af Amer) (>60) BUN/Creatinine Ratio (8-20) Glucose (70-100) mg/dL Lactic Acid 1.3 (0.5-2.0) mmol/L Calcium (8.6-10.3) mg/dL Magnesium (1.9-2.7) mg/dL Total Bilirubin (0.2-1.0) mg/dL AST (13-39) U/L ALT (7-52) U/L Alkaline Phosphatase (34-104) U/L Troponin I (<0.04) ng/mL B-Natriuretic Peptide ( - 100) pg/mL Total Protein (6.4-8.9) g/dL Albumin (3.2-5.2) g/dL Globulin (2-4) g/dL Albumin/Globulin Ratio (1-3) TSH (0.34-5.60) mcIU/mL Assess/Plan/Problems-Billing Assessment: Afib with RVR, demand mediated NSTEMI in an 86 yo F with hx of HTN, HLD, hypothyroidism, dementia - Patient Problems (1) Afib Current Visit: Yes Status: Acute Code(s): I48.91 - UNSPECIFIED ATRIAL FIBRILLATION SNOMED Code(s): 24708009 Comment: with RVR. Converted to NSR overnight after starting on Dilt gtt. Had some pauses and bradycardia after conversion, longest ~4-5 seconds. Started on PO Amiodarone by Dr. Luevano. Plan for echo and NST. Continue Eliquis. Continue to monitor on tele. (2) Elevated troponin Current Visit: No Status: Acute Code(s): R79.89 - OTHER SPECIFIED ABNORMAL FINDINGS OF BLOOD CHEMISTRY SNOMED Code(s): 210753766 Comment: Likely demand from AFib/RVR. Trend to peak. No chest pain. Echo and NST as above. (3) Hypertension Current Visit: No Status: Chronic Code(s): I10 - ESSENTIAL (PRIMARY) HYPERTENSION SNOMED Code(s): 61285641 Comment: Continue Ramipril. Amlodipine on hold. (4) Hypothyroid Current Visit: No Status: Chronic Code(s): E03.9 - HYPOTHYROIDISM, UNSPECIFIED SNOMED Code(s): 30460987 Comment: Continue Levothyroxine. TSH 1.52 03/23/17. Status and Disposition: Inpatient for AFib, troponin elevation
[2017-03-26] MEDS ORDERED: Apixaban* 2.5 MG TAB PO SCH
[2017-03-26] MEDS: Levothyroxine TAB* 75 MCG TAB PO SCH (05:24)
[2017-03-26] MEDS ORDERED: Regadenoson* 0.4 MG/5 ML SYRINGE ONE (07:30)
[2017-03-26] MEDS: Aspirin Low Dose CHEW TAB* 81 MG PO SCH (08:48)
[2017-03-26] MEDS: Memantine TAB* 5 MG PO SCH (08:48)
[2017-03-26] MEDS: Apixaban* 2.5 MG TAB PO SCH (08:49)
[2017-03-26] MEDS: Ramipril CAP* 10 MG PO SCH (08:49)
[2017-03-26] MEDS: Amiodarone TAB* 200 MG PO SCH (08:49)
--- NOTE | 2017-03-26 13:23 | RAD ---
Edited for charges. INDICATION: Atrial fibrillation. COMPARISON: Comparison is made with a prior myocardial perfusion study from December 19, 2010. Technique: A single day myocardial perfusion stress study was performed. Initially the resting study was performed. The patient was given an intravenous injection of 10.3 mCi of technetium 99m tetrofosmin and and the heart was imaged in multiple projections. The patient returned later in the day and under the direction of Dr. Vu, the patient was given intervenous injection of Lexiscan. Subsequently the patient was given intravenous injection of 25.7 mCi of technetium 99m tetrofosmin and the heart was imaged in multiple projections. Images were reconstructed in the axial, sagittal and coronal planes and in a 3- D format. FINDINGS: The cardiac apex appears hypokinetic. There was otherwise normal wall motion. The left ventricular ejection fraction is calculated to be 62%. Review of the images demonstrates demonstrates a small area of decreased activity in the cardiac apex on the post pharmacologic stress images which appears normal on the resting set of images suggestive of a small area of ischemia. IMPRESSION: FINDINGS SUGGESTIVE OF A SMALL AREA OF ISCHEMIA IN THE CARDIAC APEX. ASSESSMENT: Low risk. Based on imaging criteria from ACC/AHA 2002 Guideline Update for the Management of Patients With Chronic Stable Angina Table 23. Noninvasive Risk Stratification. MTDD
--- NOTE | 2017-03-26 15:04 | PN ---
Subjective Date of Service: 03/26/17 Interval History: Collins weak and dizzy af 3-3PM after stress test, has still been NPO since MN. No chest pain, SOB. Family History: Unchanged from Admission Social History: Unchanged from Admission Past Medical History: Unchanged from Admission Objective Active Medications: Acetaminophen (Tylenol Tab*) 650 mg PO Q4H PRN PRN Reason: FEVER/PAIN Amiodarone HCl (Cordarone Tab*) 200 mg PO BID [facility] Last Admin: 03/26/17 08:49 Dose: 200 mg Apixaban (Eliquis) 2.5 mg PO BID [facility] Last Admin: 03/26/17 08:49 Dose: 2.5 mg Aspirin (Aspirin Low Dose Tab*) 81 mg PO DAILY [facility] Last Admin: 03/26/17 08:48 Dose: 81 mg Levothyroxine Sodium (Synthroid Tab*) 75 mcg PO 0600 [facility] Last Admin: 03/26/17 05:24 Dose: 75 mcg Memantine (Namenda Tab*) 5 mg PO BID [facility] Last Admin: 03/26/17 08:48 Dose: 5 mg Ondansetron HCl (Zofran Inj*) 4 mg IV Q6H PRN PRN Reason: NAUSEA Ramipril (Altace Cap*) 10 mg PO DAILY [facility] Last Admin: 03/26/17 08:49 Dose: 10 mg Vital Signs 03/25/17 03/25/17 03/25/17 16:01 19:42 19:50 Temperature 97.9 F 97.7 F Pulse Rate 61 67 Respiratory 16 18 18 Rate Blood Pressure 121/72 150/80 (mmHg) O2 Sat by Pulse 98 99 Oximetry 03/25/17 03/26/17 03/26/17 23:29 03:47 08:00 Temperature 99.2 F 98.2 F Pulse Rate 64 57 Respiratory 16 16 16 Rate Blood Pressure 138/66 120/60 (mmHg) O2 Sat by Pulse 96 97 Oximetry Oxygen Devices in Use Now: None Appearance: Alert, partly up in bed. In good spirits. Looks comfortable. Neck: NL Appearance and Movements; NL JVP, No Thyroid Enlargement, Masses Respiratory: Symmetrical Chest Expansion and Respiratory Effort, Clear to Auscultation, Clear to Percussion Cardiovascular: NL Sounds; No Murmurs; No JVD, RRR, No Edema, - Extremities: No Edema, No Clubbing, Cyanosis, - Skin: No Rash or Ulcers, No Nodules or Sclerosis, - Neurological: Alert and Oriented x 3, NL Sensation Result Diagrams: 03/24/17 05:08 03/24/17 05:08 Additional Lab and Data: Lab Results 03/23/17 03/23/17 03/23/17 Range/Units 16:20 16:20 16:20 WBC 8.8 (3.5-10.8) 10^3/ul RBC 4.57 (4.0-5.4) 10^6/ul Hgb 14.2 (12.0-16.0) g/dl Hct 42 (35-47) % MCV 91 (80-97) fL MCH 31 (27-31) pg MCHC 34 (31-36) g/dl RDW 13 (10.5-15) % Plt Count 187 (150-450) 10^3/ul MPV 11 H (7.4-10.4) um3 Neut % (Auto) 63.1 (38-83) % Lymph % (Auto) 25.9 (25-47) % [place] % (Auto) 7.9 (1-9) % Eos % (Auto) 2.7 (0-6) % Baso % (Auto) 0.4 (0-2) % Absolute Neuts (auto) 5.5 (1.5-7.7) 10^3/ul Absolute Lymphs (auto) 2.3 (1.0-4.8) 10^3/ul Absolute Monos (auto) 0.7 (0-0.8) 10^3/ul Absolute Eos (auto) 0.2 (0-0.6) 10^3/ul Absolute Basos (auto) 0 (0-0.2) 10^3/ul Absolute Nucleated RBC 0.01 10^3/ul Nucleated RBC % 0.1 INR (Anticoag Therapy) (0.89-1.11) Sodium 138 (133-145) mmol/L Potassium 3.6 (3.5-5.0) mmol/L Chloride 104 (101-111) mmol/L Carbon Dioxide 26 (22-32) mmol/L Anion Gap 8 (2-11) mmol/L BUN 19 (6-24) mg/dL Creatinine 1.09 H (0.51-0.95) mg/dL Est GFR ( Amer) 60.9 (>60) Est GFR (Non-Af Amer) 47.4 (>60) BUN/Creatinine Ratio 17.4 (8-20) Glucose 120 H (70-100) mg/dL Lactic Acid (0.5-2.0) mmol/L Calcium 10.0 (8.6-10.3) mg/dL Magnesium 2.0 (1.9-2.7) mg/dL Total Bilirubin 0.70 (0.2-1.0) mg/dL AST 20 (13-39) U/L ALT 8 (7-52) U/L Alkaline Phosphatase 70 (34-104) U/L Troponin I 0.05 H* (<0.04) ng/mL B-Natriuretic Peptide 539 H ( - 100) pg/mL Total Protein 7.5 (6.4-8.9) g/dL Albumin 3.9 (3.2-5.2) g/dL Globulin 3.6 (2-4) g/dL Albumin/Globulin Ratio 1.1 (1-3) TSH 1.52 (0.34-5.60) mcIU/mL 03/23/17 03/23/17 Range/Units 16:20 16:20 WBC (3.5-10.8) 10^3/ul RBC (4.0-5.4) 10^6/ul Hgb (12.0-16.0) g/dl Hct (35-47) % MCV (80-97) fL MCH (27-31) pg MCHC (31-36) g/dl RDW (10.5-15) % Plt Count (150-450) 10^3/ul MPV (7.4-10.4) um3 Neut % (Auto) (38-83) % Lymph % (Auto) (25-47) % [place] % (Auto) (1-9) % Eos % (Auto) (0-6) % Baso % (Auto) (0-2) % Absolute Neuts (auto) (1.5-7.7) 10^3/ul Absolute Lymphs (auto) (1.0-4.8) 10^3/ul Absolute Monos (auto) (0-0.8) 10^3/ul Absolute Eos (auto) (0-0.6) 10^3/ul Absolute Basos (auto) (0-0.2) 10^3/ul Absolute Nucleated RBC 10^3/ul Nucleated RBC % INR (Anticoag Therapy) 0.93 (0.89-1.11) Sodium (133-145) mmol/L Potassium (3.5-5.0) mmol/L Chloride (101-111) mmol/L Carbon Dioxide (22-32) mmol/L Anion Gap (2-11) mmol/L BUN (6-24) mg/dL Creatinine (0.51-0.95) mg/dL Est GFR ( Amer) (>60) Est GFR (Non-Af Amer) (>60) BUN/Creatinine Ratio (8-20) Glucose (70-100) mg/dL Lactic Acid 1.3 (0.5-2.0) mmol/L Calcium (8.6-10.3) mg/dL Magnesium (1.9-2.7) mg/dL Total Bilirubin (0.2-1.0) mg/dL AST (13-39) U/L ALT (7-52) U/L Alkaline Phosphatase (34-104) U/L Troponin I (<0.04) ng/mL B-Natriuretic Peptide ( - 100) pg/mL Total Protein (6.4-8.9) g/dL Albumin (3.2-5.2) g/dL Globulin (2-4) g/dL Albumin/Globulin Ratio (1-3) TSH (0.34-5.60) mcIU/mL Assess/Plan/Problems-Billing Assessment: Afib with RVR, demand mediated NSTEMI in an 86 yo F with hx of HTN, HLD, hypothyroidism, dementia - Patient Problems (1) Afib Current Visit: Yes Status: Acute Code(s): I48.91 - UNSPECIFIED ATRIAL FIBRILLATION SNOMED Code(s): 51505444 Comment: with RVR. Converted to NSR overnight after starting on Dilt gtt. Had some pauses and bradycardia after conversion, longest ~4-5 seconds. Started on PO Amiodarone by Dr. Luevano. Echo showed LVEF 45-50%, mild global hypokinesis. Stress test showed small apical area of ischemia with apical hypokines but nl LVWF. Discussed with Dr. Luevano. Pt will be discharged now, fup with Dr. Markham. Continue Eliquis. (2) Elevated troponin Current Visit: No Status: Acute Code(s): R79.89 - OTHER SPECIFIED ABNORMAL FINDINGS OF BLOOD CHEMISTRY SNOMED Code(s): 132383932 Comment: Likely demand from AFib/RVR. Trend to peak. No chest pain. Echo and NST as above. (3) Hypertension Current Visit: No Status: Chronic Code(s): I10 - ESSENTIAL (PRIMARY) HYPERTENSION SNOMED Code(s): 29588257 Comment: Continue Ramipril. Amlodipine on hold. (4) Hypothyroid Current Visit: No Status: Chronic Code(s): E03.9 - HYPOTHYROIDISM, UNSPECIFIED SNOMED Code(s): 63141714 Comment: Continue Levothyroxine. TSH 1.52 03/23/17. Status and Disposition: Discharge now. Fup Bassem Jeffers.
[2017-03-26 16:16] VITALS: BP 150/72
--- NOTE | 2017-03-26 16:59 | PN ---
Progress Note - Progress Note Date of Service: 03/26/17 Note: Time spent on discharge 50 minutes.
--- NOTE | 2017-03-27 04:10 | DS ---
CC: Dr. Heart; Dr. Luevano * DISCHARGE SUMMARY: DATE OF ADMISSION: DATE OF DISCHARGE: 03/26/17 HISTORY: This 86-year-old woman presented with dizziness. She was lightheaded and felt her heart pounding. It may have occurred for a day or two at home. In the emergency room, she was found to be in atrial fibrillation with rapid ventricular response. There was no change in medication. She does not abuse alcohol or drink excessive caffeine. I do not think she drinks any alcohol at all. She was admitted to our telemetry unit. Her TSH level was 1.52 within normal range. Electrolytes were unremarkable. Creatinine was 0.82. Platelet count was 147, which was borderline low, but consistent with previous readings. Hemoglobin 12.5, white count 5.6. She was placed on intravenous diltiazem. She spontaneously cardioverted within the first 24 hours of her hospital stay and maintains sinus rhythm. She was seen in consultation by Dr. Luevano. She had an echocardiogram on 03/24/17. This showed an ejection fraction of 45% to 50% with mild global hypokinesis of the left ventricle. There are no significant valvular abnormalities. She was started on apixaban and amiodarone. She will follow up with Dr. Luevano. FINAL DIAGNOSES: 1. Paroxysmal atrial fibrillation. 2. Elevated troponin. 3. Hypertension. 4. Hypothyroidism. The patient had a stress test as well, which did not show any significant area of ischemia per Dr. Luevano, although official interpretation is there was a small area of apical ischemia. DISCHARGE MEDICATIONS: 1. Acetaminophen 650 mg every 4 hours p.r.n. 2. Amiodarone 200 mg b.i.d. for 14 days, then once daily. 3. Ramipril 10 mg daily. 4. Apixaban 2.5 mg b.i.d. 5. Levothyroxine 75 mcg daily. 6. Aspirin 81 mg daily. 7. Memantine 5 mg b.i.d. Amlodipine has been discontinued. [id number]/[facility] #: [id number] [facility]
== END 2017-03-26 17:31 | disposition home or self-care (01) | DRG 310 ==
LOC: ED 15:40 → MEDTELE 17:20 → OBSVTOIN 03-25 01:10
PROVIDERS: ADMIT Internal Medicine; ATTEND Internal Medicine
DX: I48.0 Paroxysmal atrial fibrillation (principal); F03.90 Unspecified dementia, unspecified severity, without behavioral disturbance, psychotic disturbance, mood disturbance, and anxiety; I45.10 Unspecified right bundle-branch block; R74.8 Abnormal levels of other serum enzymes; I10 Essential (primary) hypertension; E78.5 Hyperlipidemia, unspecified; Z79.82 Long term (current) use of aspirin; Z79.899 Other long term (current) drug therapy; Z88.5 Allergy status to narcotic agent; Z88.7 Allergy status to serum and vaccine; Z88.8 Allergy status to other drugs, medicaments and biological substances; Z82.0 Family history of epilepsy and other diseases of the nervous system; Z82.49 Family history of ischemic heart disease and other diseases of the circulatory system
CPT/HCPCS: 36415; 70450; 71010; 71275; 78452; 80048; 80053; 81003; 81015; 83605; 83735; 83880; 84443; 84484; 85025; 85379; 85610; 93005; 93017; 93306; 94760; A9270-GY; A9502; G0378; J0461; J2785; Q9967

== ENCOUNTER 2017-04-14 19:55 | Emergency (ER) | payer MEDICARE ==
[2017-04-14 20:40] LABS: Hematocrit 39 % (35-47); Mean Corpuscular HGB Conc 34 g/dl (31-36); Mean Corpuscular Hemoglobin 31 pg (27-31); Mean Corpuscular Volume 92 fL (80-97); Mean Platelet Volume 10 um3 (7.4-10.4); Red Blood Count 4.19 10^6/ul (4.0-5.4); Red Cell Distribution Width 14 % (10.5-15); White Blood Count 6.2 10^3/ul (3.5-10.8)
[2017-04-14 20:52] LABS: Albumin 3.6 g/dL (3.2-5.2); BUN/Creatinine Ratio 13.1 (8-20); Calcium 9.4 mg/dL (8.6-10.3); EGFR African American 53.5 (>60); EGFR Non-African American 41.6 (>60); Globulin 3.2 g/dL (2-4); Magnesium 2.1 mg/dL (1.9-2.7); Potassium 3.6 mmol/L (3.5-5.0); Total Bilirubin 0.4 mg/dL (0.2-1.0); Total Protein 6.8 g/dL (6.4-8.9)
[2017-04-14 20:54] LABS: Troponin I 0.02 ng/mL (<0.04)
[2017-04-14 21:14] LABS: TSH (Thyroid Stimulating Horm) 4.33 mcIU/mL (0.34-5.60)
--- NOTE | 2017-04-14 21:49 | ED ---
Edith Nielsen Edward, scribed for Ant Farmer MD on 04/14/17 at 2009 . Complex/Multi-Sys Presentation - HPI Summary HPI Summary: 86 y/o female presents to the ED c/o fatigue and sleep disturbance starting last night. Pt recently started 2 new medicines a couple of weeks ago. Pt said she could not fall asleep at all last night and slept throughout the day today. The symptoms are not aggravated or alleviated by anything. Associated sx: pt's blood pressure has been up and down throughout the day. PMHx thyroid disease. 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 - History Of Current Complaint Chief Complaint: EDGeneral Time Seen by Provider: 04/14/17 20:02 Hx Obtained From: Patient Onset/Duration: Lasting Days Associated Signs And Symptoms: Positive: Other - Fatigue, sleep disturbance, blood pressure up and down - Allergies/Home Medications Allergies/Adverse Reactions: Allergies Allergy/AdvReac Type Severity Reaction Status Date / Time Ciprofloxacin Allergy Intermediate Rash Verified 04/14/17 19:58 Influenza Vaccines Allergy Unknown Unknown Verified 04/14/17 19:58 Reaction Details Pneumococcal Polysaccharides Allergy Unknown elbow Verified 04/14/17 19:58 [From Pneumovax] swelling Atorvastatin [From Lipitor] AdvReac Intermediate muscle Verified 04/14/17 19:58 cramps, nausea, insomnia Codeine AdvReac Intermediate GI Upset Verified 04/14/17 19:58 PMH/Surg Hx/FS Hx/Imm Hx Previously Healthy: No Endocrine/Hematology History: Reports: Hx Thyroid Disease Denies: Hx Diabetes Cardiovascular History: Reports: Hx Hypercholesterolemia, Hx Hypertension Denies: Hx Coronary Artery Disease, Hx Myocardial Infarction, Hx Valvular Heart Disease Respiratory History: Denies: Hx Asthma, Hx Chronic Obstructive Pulmonary Disease (COPD) GI History: Denies: Hx Ulcer Sensory History: Reports: Hx Cataracts, Hx Contacts or Glasses - readers only for fine print, Hx Hearing Aid Opthamlomology History: Reports: Hx Cataracts, Hx Contacts or Glasses - readers only for fine print - Surgical History Surgery Procedure, Year, and Place: tonsillectomy/adenoids at 8 years old. appendectomy 7 years ago. hernia repair. stomach lump - patient stated it was removed when she was around 68 years old. cataract surgery ' - Immunization History Date of Tetanus Vaccine: Unk Date of Influenza Vaccine: Allergic Infectious Disease History: No Infectious Disease History: Denies: Hx Clostridium Difficile, Hx Hepatitis, Hx Human Immunodeficiency Virus (HIV), Hx of Known/Suspected MRSA, Hx Shingles, Hx Tuberculosis, Hx Known/ Suspected VRE, Hx Known/Suspected VRSA, History Other Infectious Disease, Traveled Outside the [place] in Last 30 Days - Family History Known Family History: Positive: Cardiac Disease - Social History Alcohol Use: None Hx Substance Use: No Substance Use Type: Reports: None Hx Tobacco Use: No Smoking Status (MU): Never Smoked Tobacco Have You Smoked in the Last Year: No Review of Systems Positive: Fatigue Eyes: Negative ENT: Negative Cardiovascular: Other - Blood pressure has been up and down today Respiratory: Negative Gastrointestinal: Negative Genitourinary: Negative Musculoskeletal: Negative Skin: Negative Neurological: Negative Psychological: Other - Sleep distur All Other Systems Reviewed And Are Negative: Yes Physical Exam Triage Information Reviewed: Yes Vital Signs On Initial Exam: Initial Vitals Temp Pulse Resp BP Pulse Ox 98.7 F 76 16 154/76 96 04/14/17 19:58 04/14/17 19:58 04/14/17 19:58 04/14/17 19:58 04/14/17 19:58 Vital Signs Reviewed: Yes Appearance: Positive: Well-Appearing, No Pain Distress Skin: Positive: Warm, Skin Color Reflects Adequate Perfusion, Dry Head/Face: Positive: Normal Head/Face Inspection Eyes: Positive: Normal ENT: Positive: Normal ENT inspection Neck: Positive: Supple, Nontender Respiratory/Lung Sounds: Positive: Clear to Auscultation, Breath Sounds Present Cardiovascular: Positive: RRR Abdomen Description: Positive: Nontender, Soft Bowel Sounds: Positive: Present Musculoskeletal: Positive: Normal Neurological: Positive: Normal Psychiatric: Positive: Normal Diagnostics - Vital Signs Vital Signs Temp Pulse Resp BP Pulse Ox 04/14/17 19:58 98.7 F 76 16 154/76 96 - Laboratory Lab Results: Lab Results 04/14/17 04/14/17 04/14/17 Range/Units 20:31 20:31 20:31 WBC 6.2 (3.5-10.8) 10^3/ul RBC 4.19 (4.0-5.4) 10^6/ul Hgb 13.0 (12.0-16.0) g/dl Hct 39 (35-47) % MCV 92 (80-97) fL MCH 31 (27-31) pg MCHC 34 (31-36) g/dl RDW 14 (10.5-15) % Plt Count 191 (150-450) 10^3/ul MPV 10 (7.4-10.4) um3 Neut % (Auto) 50.4 (38-83) % Lymph % (Auto) 27.9 (25-47) % [place] % (Auto) 12.4 H (1-9) % Eos % (Auto) 8.2 H (0-6) % Baso % (Auto) 1.1 (0-2) % Absolute Neuts (auto) 3.2 (1.5-7.7) 10^3/ul Absolute Lymphs (auto) 1.7 (1.0-4.8) 10^3/ul Absolute Monos (auto) 0.8 (0-0.8) 10^3/ul Absolute Eos (auto) 0.5 (0-0.6) 10^3/ul Absolute Basos (auto) 0.1 (0-0.2) 10^3/ul Absolute Nucleated RBC 0.01 10^3/ul Nucleated RBC % 0.1 INR (Anticoag Therapy) (0.89-1.11) Sodium 137 (133-145) mmol/L Potassium 3.6 (3.5-5.0) mmol/L Chloride 103 (101-111) mmol/L Carbon Dioxide 28 (22-32) mmol/L Anion Gap 6 (2-11) mmol/L BUN 16 (6-24) mg/dL Creatinine 1.22 H (0.51-0.95) mg/dL Est GFR ( Amer) 53.5 (>60) Est GFR (Non-Af Amer) 41.6 (>60) BUN/Creatinine Ratio 13.1 (8-20) Glucose 114 H (70-100) mg/dL Lactic Acid 1.0 (0.5-2.0) mmol/L Calcium 9.4 (8.6-10.3) mg/dL Magnesium 2.1 (1.9-2.7) mg/dL Total Bilirubin 0.40 (0.2-1.0) mg/dL AST 16 (13-39) U/L ALT 9 (7-52) U/L Alkaline Phosphatase 78 (34-104) U/L Troponin I 0.02 (<0.04) ng/mL Total Protein 6.8 (6.4-8.9) g/dL Albumin 3.6 (3.2-5.2) g/dL Globulin 3.2 (2-4) g/dL Albumin/Globulin Ratio 1.1 (1-3) TSH 4.33 (0.34-5.60) mcIU/mL 04/14/17 Range/Units 20:31 WBC (3.5-10.8) 10^3/ul RBC (4.0-5.4) 10^6/ul Hgb (12.0-16.0) g/dl Hct (35-47) % MCV (80-97) fL MCH (27-31) pg MCHC (31-36) g/dl RDW (10.5-15) % Plt Count (150-450) 10^3/ul MPV (7.4-10.4) um3 Neut % (Auto) (38-83) % Lymph % (Auto) (25-47) % [place] % (Auto) (1-9) % Eos % (Auto) (0-6) % Baso % (Auto) (0-2) % Absolute Neuts (auto) (1.5-7.7) 10^3/ul Absolute Lymphs (auto) (1.0-4.8) 10^3/ul Absolute Monos (auto) (0-0.8) 10^3/ul Absolute Eos (auto) (0-0.6) 10^3/ul Absolute Basos (auto) (0-0.2) 10^3/ul Absolute Nucleated RBC 10^3/ul Nucleated RBC % INR (Anticoag Therapy) 1.03 (0.89-1.11) Sodium (133-145) mmol/L Potassium (3.5-5.0) mmol/L Chloride (101-111) mmol/L Carbon Dioxide (22-32) mmol/L Anion Gap (2-11) mmol/L BUN (6-24) mg/dL Creatinine (0.51-0.95) mg/dL Est GFR ( Amer) (>60) Est GFR (Non-Af Amer) (>60) BUN/Creatinine Ratio (8-20) Glucose (70-100) mg/dL Lactic Acid (0.5-2.0) mmol/L Calcium (8.6-10.3) mg/dL Magnesium (1.9-2.7) mg/dL Total Bilirubin (0.2-1.0) mg/dL AST (13-39) U/L ALT (7-52) U/L Alkaline Phosphatase (34-104) U/L Troponin I (<0.04) ng/mL Total Protein (6.4-8.9) g/dL Albumin (3.2-5.2) g/dL Globulin (2-4) g/dL Albumin/Globulin Ratio (1-3) TSH (0.34-5.60) mcIU/mL Result Diagrams: 04/14/17 20:31 04/14/17 20:31 Lab Statement: Any lab studies that have been ordered have been reviewed, and results considered in the medical decision making process. - EKG 1 EKG Interpretation: 20:51 - SR @ 60 BPM. LVH. INCOMPLETE RBBB EKG Comparison: No Significant Change - 03/24/17 Re-Evaluation - Re-Evaluation 1 Re-Evaluation Time: 21:33 Complex Multi-Symp Course/Dx Course Of Treatment: Ms. Wheat was unable to sleep last night and then slep most of the day today. Her daughter took her BP a lot and it varied quite a bit. She feels fine now and her W/U was negative. She is going home and will F/ U with Dr. Méndez. - Diagnoses Provider Diagnoses: Insomnia Discharge - Discharge Plan Condition: Stable Disposition: HOME Patient Education Materials: Insomnia (ED) Referrals: Shamika Méndez MD [Medical Doctor] - 3 Days (PLEASE F/U IN 2-3 DAYS) The documentation as recorded by the Edith manriquez Edward accurately reflects the service I personally performed and the decisions made by me, Ant Farmer MD.
[2017-04-14 22:34] VITALS: BP 145/70
== END 2017-04-14 22:34 | disposition home or self-care (01) ==
LOC: ED 19:55
DX: G47.00 Insomnia, unspecified (principal)
CPT/HCPCS: 36415; 80053; 83605; 83735; 84443; 84484; 85025; 85610; 93005; 99283

== ENCOUNTER 2018-02-01 20:01 | Inpatient (IN) | payer MEDICARE ==
[2018-02-01] MEDS ORDERED: Ondansetron INJ* 2 MG/ML VIAL ONE (20:06)
[2018-02-01] MEDS ORDERED: Morphine VIAL* 4 MG/ML VIAL (1 ml vial) IV ONE ×2 (20:06→21:19)
[2018-02-01] MEDS ORDERED: fentaNYL* 50 MCG/ML 2 ML VIAL (100 MCG VIAL) IV ONE (20:08)
--- NOTE | 2018-02-01 20:08 | ED ---
Abdominal Pain/Female - HPI Summary HPI Summary: Pt is 87 y/o F c/o very sudden epigastric abdominal pain onset ~1930. She describes pain as tearing and rates it an 11/10, per EMS. Associated Sx: N/V. Denies: CP, back pain. Modifying factors: None. Pt notes she was very sad following hearing news that her friend . Pain onset shortly after. Pt had high blood pressure (170/90) en route to ED. - History of Current Complaint Stated Complaint: HIGH BLOOD PRESSURE Time Seen by Provider: 02/01/18 20:03 Hx Obtained From: Patient Onset/Duration: Sudden Onset, Lasting Hours, Still Present Timing: Constant Pain Intensity: 11 Pain Scale Used: 0-10 Numeric Location: Epigastric Radiates: No Character: Tearing Alleviating Factor(s): Nothing Associated Signs and Symptoms: Positive: Nausea, Vomiting. Negative: Chest Pain , Back Pain Allergies/Adverse Reactions: Allergies Allergy/AdvReac Type Severity Reaction Status Date / Time MS Ciprofloxacin Allergy Intermediate Rash Verified 04/14/17 19:58 [Ciprofloxacin] MS Influenza Vaccines Allergy Unknown Unknown Verified 04/14/17 19:58 [Influenza Vaccines] Reaction Details MS Pneumococcal Allergy Unknown elbow Verified 04/14/17 19:58 Polysaccharides swelling [From Pneumovax] MS Atorvastatin AdvReac Intermediate muscle Verified 04/14/17 19:58 [From Lipitor] cramps, nausea, insomnia MS Codeine [Codeine] AdvReac Intermediate GI Upset Verified 04/14/17 19:58 PMH/Surg Hx/FS Hx/Imm Hx Previously Healthy: No Endocrine/Hematology History: Reports: Hx Thyroid Disease Denies: Hx Diabetes Cardiovascular History: Reports: Hx Hypercholesterolemia, Hx Hypertension Denies: Hx Coronary Artery Disease, Hx Myocardial Infarction, Hx Valvular Heart Disease Respiratory History: Denies: Hx Asthma, Hx Chronic Obstructive Pulmonary Disease (COPD) GI History: Denies: Hx Ulcer Sensory History: Reports: Hx Cataracts, Hx Contacts or Glasses - readers only for fine print, Hx Hearing Aid Opthamlomology History: Reports: Hx Cataracts, Hx Contacts or Glasses - readers only for fine print - Surgical History Surgery Procedure, Year, and Place: tonsillectomy/adenoids at 8 years old. appendectomy 7 years ago. hernia repair. stomach lump - patient stated it was removed when she was around 68 years old. cataract surgery '09 - Immunization History Date of Tetanus Vaccine: Unk Date of Influenza Vaccine: Allergic Infectious Disease History: Denies: Hx Clostridium Difficile, Hx Hepatitis, Hx Human Immunodeficiency Virus (HIV), Hx of Known/Suspected MRSA, Hx Shingles, Hx Tuberculosis, Hx Known/ Suspected VRE, Hx Known/Suspected VRSA, History Other Infectious Disease, Traveled Outside the [place] in Last 30 Days - Family History Known Family History: Positive: Cardiac Disease - Social History Occupation: Retired Lives: With Family Alcohol Use: None Hx Substance Use: No Substance Use Type: Reports: None Hx Tobacco Use: No Smoking Status (MU): Never Smoked Tobacco Have You Smoked in the Last Year: No Review of Systems Negative: Chest Pain Positive: Abdominal Pain, Vomiting - at home, Nausea - at home, Other - bloated Positive: Headache All Other Systems Reviewed And Are Negative: Yes Physical Exam - Summary Physical Exam Summary: Appearance: Well-appearing, Well-nourished, lying in bed comfortably Skin: Warm, dry, no obvious rash Eyes: sclera anicteric, no conjunctival pallor ENT: mucous membranes moist, pharynx appears normal Neck: Supple, nontender Respiratory: Clear to auscultation, no signs of respiratory distress Cardiovascular: Normal S1, S2. No murmurs. Normal distal pulses in tibial and radial bilaterally. Abdomen: general tenderness, no peritoneal signs, no pulsatile masses, normal active bowel sounds present, femoral pulses 2+ and symmetric Musculoskeletal: Normal, Strength/ROM Intact Neurological: A&Ox3, awake and alert, mentation is normal, speech is fluent and appropriate Psychiatric: affect is normal, does not appear anxious or depressed Triage Information Reviewed: Yes Vital Signs Reviewed: Yes Diagnostics - Laboratory Result Diagrams: 02/01/18 20:21 02/01/18 20:21 Lab Statement: Any lab studies that have been ordered have been reviewed, and results considered in the medical decision making process. - CT A/P CT CT Interpretation: Positive (See Comments) - IMPRESSION: 1. There is calcified atherosclerosis but no pathologic aneurysmal dilatation of the abdominal aorta. Further characterization cannot be made in the absence of intravascular contrast. 2. Pathologically dilated small bowel up to 3.5 cm in diameter with multiple air-fluid levels. Please correlate to clinical signs and symptoms of partial small bowel CT Interpretation Completed By: Radiologist - provider has reviewed this report. - EKG 2019 Cardiac Rate: NL - 61 bpm EKG Interpretation: Ventricular premature complex, RBBB EKG Comparison: Other - From 04/14/17, unchanged except diffuse T-wave inversions Abdominal Pain Fem Course/Dx - Diagnoses Provider Diagnoses: Bowel obstruction - Provider Notifications Discussed Care Of Patient With: Alberto Montero - hospitalist Time Discussed With Above Provider: 21:23 Instructed by Provider To: Admit As Inpatient Discharge - Sign-Out/Discharge Documenting (check all that apply): Patient Departure - admit - Discharge Plan Condition: Stable Disposition: ADMITTED TO [facility] - Billing Disposition and Condition Condition: STABLE Disposition: Admitted to [facility]
[2018-02-01 20:30] LABS: ABS Basophils 0.1 10^3/ul (0-0.2); ABS Eosinophils 0.2 10^3/ul (0-0.6); ABS Lymphocytes 1.7 10^3/ul (1.0-4.8); ABS Monocytes 0.7 10^3/ul (0-0.8); ABS Neutrophils 7.8 10^3/ul (1.5-7.7); ABS Nucleated RBC 0 10^3/ul; Eosinophil % 2.3 % (0-6); Hematocrit 37 % (35-47); Hemoglobin 12.6 g/dl (12.0-16.0); Lymphocyte % 15.7 % (25-47); Mean Corpuscular HGB Conc 34 g/dl (31-36); Mean Corpuscular Hemoglobin 31 pg (27-31); Mean Corpuscular Volume 93 fL (80-97); Mean Platelet Volume 10.7 um3 (7.4-10.4); Nucleated Red Blood Cells % 0; Platelet Count 160 10^3/ul (150-450); Red Blood Count 4.01 10^6/ul (4.00-5.40); Red Cell Distribution Width 13 % (10.5-15); White Blood Count 10.5 10^3/ul (3.5-10.8)
--- NOTE | 2018-02-01 20:48 | RAD ---
CLINICAL HISTORY: Upper abdominal pain and hypertension COMPARISON: CT abdomen pelvis October 23, 2015 TECHNIQUE: Noncontrast CT examination of the abdomen and pelvis from the lung bases through the initial tuberosities. FINDINGS: Unless otherwise specified comparisons below reference the October 23, 2015 CT. VISUALIZED LUNG BASES: Similar to the prior CT examination there is interlobular thickening as well as centrilobular emphysematous changes. There is ectatic dilatation of the medium and small airways. ABDOMEN AND PELVIS: Evaluation of the solid organs and vasculature is limited without intravenous contrast. The liver, spleen, pancreas and adrenal glands are grossly normal in appearance. The gallbladder is normal. The kidneys are normal in appearance without focal mass, calcification or signs of hydronephrosis. Evaluation of the gastrointestinal tract is limited without oral contrast. At the low midline abdomen the small bowel is dilated up to 3.4 cm in diameter and there are multiple air-fluid levels (axial image 101 for example). More distally the small bowel is decompressed, though it is difficult to discern the approximate transition point. The colon as gas and stool in the lumen but is mostly decompressed. There is no free intraperitoneal air. There is no gross retroperitoneal or mesenteric lymphadenopathy. The pelvic viscera is normal in appearance. The lower thoracic and abdominal aorta exhibit coarse atherosclerotic calcification. There is no pathologic aneurysmal dilatation. Dissection cannot be determined in the absence of intravascular contrast. Degenerative changes include multilevel loss of intervertebral disc height involving the lower thoracic and lumbar spine and vacuum disc phenomenon at L5/S1 at L3/L4..There are no sinister bone lesions. IMPRESSION: 1. There is calcified atherosclerosis but no pathologic aneurysmal dilatation of the abdominal aorta. Further characterization cannot be made in the absence of intravascular contrast. 2. Pathologically dilated small bowel up to 3.5 cm in diameter with multiple air-fluid levels. Please correlate to clinical signs and symptoms of partial small bowel obstruction. 3. Additional chronic and degenerative changes described in the body the report.
[2018-02-01 20:49] LABS: EGFR Non-African American 56.1 (>60)
[2018-02-01] MEDS ORDERED: Morphine VIAL* 4 MG/ML VIAL (1 ml vial) IV PRN ×2 (21:31→21:55)
[2018-02-01] MEDS ORDERED: Ondansetron INJ* 2 MG/ML VIAL IV PRN (21:31)
--- NOTE | 2018-02-02 00:07 | HP ---
CC: Dr. Heart * [facility] MEDICINE HISTORY AND PHYSICAL: DATE OF ADMISSION: 02/01/18 PRIMARY CARE PHYSICIAN: Dr. Heart. ATTENDING PHYSICIAN: Alberto Montero MD * (dictation provided by Jackie Ponce NP). CHIEF COMPLAINT: Abdominal pain. HISTORY OF PRESENT ILLNESS: Ms. Wheat is an 87-year-old female with a past medical history of hypertension, hypothyroidism, atrial fibrillation on Eliquis who presents today to the hospital with concern for sudden onset of abdominal pain at about 5 o'clock this afternoon. The patient states she has a history of appendectomy and hernia repair and "lump removal from the abdomen." She developed sudden onset of this pain at about 5 o'clock. She said it was quite severe and in the mid to epigastric region. She went out briefly with her daughter but felt that she was too ill and then returned home shortly thereafter. Her last bowel movement was this morning with small formed stool. She had nausea and vomiting x1 after the onset of the pain. She denies any chest pain. She has had no shortness of breath. In the emergency room, Ms. Wheat had a CT of the abdomen, which showed a partial small bowel obstruction. Her labs are unremarkable. Her vitals are stable. PAST MEDICAL HISTORY: 1. AFib, on Eliquis and amiodarone. 2. Hypothyroidism. 3. Hypertension. PAST SURGICAL HISTORY: 1. Appendectomy. 2. Hernia repair. 3. History of "lump removal" from abdomen. MEDICATIONS: 1. Levothyroxine 75 mcg p.o. daily. 2. Aspirin 81 mg p.o. daily. 3. Apixaban 2.5 mg p.o. b.i.d. 4. Amiodarone 200 mg p.o. b.i.d. 5. Ramipril 10 mg p.o. daily. 6. Namenda 5 mg p.o. b.i.d. ALLERGIES: CIPROFLOXACIN, INFLUENZA VACCINES, PNEUMOVAX, ATORVASTATIN, and CODEINE. FAMILY HISTORY: The patient reports her dad related to a heart attack at 75. Her mom at 79 but she cannot recall the cause of . SOCIAL HISTORY: No report of alcohol, tobacco, or drug use. The patient lives alone. She states her daughter Kerry Roth will be the healthcare proxy. REVIEW OF SYSTEMS: A 14-point review of systems was completed with Ms. Wheat and all those not mentioned above were negative. PHYSICAL EXAMINATION GENERAL: Ms. Wheat is sitting up in the bed. She is in no acute distress. VITAL SIGNS: Temperature 98.3, pulse rate 84, respiratory rate 20, O2 saturation 99% on room air, blood pressure 165/97. LUNGS: Clear to auscultation bilaterally with no accessory muscle use and good aeration. HEART: S1, S2. No murmur, rub, or gallop and regular. ABDOMEN: Soft. There is some mild tenderness in the epigastric region and over along the upper right flank. The bowel sounds are positive. EXTREMITIES: No cyanosis. No edema. NEURO: She is alert. She is oriented x3. She moves all extremities equally. There is no facial asymmetry or focal weakness. Extraocular movements are intact. SKIN: Intact. DIAGNOSTIC STUDIES/LAB DATA: Sodium 138, potassium 3.8, chloride 106, serum bicarbonate 26, BUN 17, creatinine 0.94, glucose 100. Lactic acid 0.7, lipase 21. WBC 10.5, hemoglobin 12.6, hematocrit 37, platelet count 160,000. Abdomen and pelvis CT is read as follows: There is calcified atherosclerosis but no pathological aneurysm or dilatation of the abdominal aorta. Pathologically dilated small bowel up to 3.5 cm in diameter with multiple air-fluid levels. ASSESSMENT/PLAN: Ms. Wheat is an 87-year-old female with past medical history of atrial fibrillation, on amiodarone and Eliquis, as well as hypothyroidism and multiple abdominal surgeries who presents today to the hospital after a sudden onset of abdominal pain with nausea and vomiting, found to have a partial small bowel obstruction. Our plans are for inpatient admission as I anticipate her length of stay to be greater than 2 days for the followin. Partial small bowel obstruction. The patient will be admitted. She will be n.p.o. except for medications, which will consist just of her amiodarone and levothyroxine. I have encouraged her to ambulate as possible to encourage bowel motility. She will have morphine available p.r.n. for pain. We will consult with Dr. Mathew and I will make a call to her at the completion of this dictation. 2. Hypothyroidism. Continue levothyroxine. 3. Atrial fibrillation. The patient has atrial fibrillation with no history of cerebrovascular accident. Plan to continue amiodarone but we will hold Eliquis in the event that surgery is needed. 4. Hypertension. Hold ramipril. 5. Code status is DNR and a form was completed with her and with her daughter at the bedside. 6. Disposition to medical floor. TIME SPENT: Approximately 60 minutes were spent on the admission of this patient, more than half the time spent with the patient at the bedside reviewing the events leading up to this hospitalization, performing the physical examination, and reviewing my plan of care. JACKIE PONCE NP [id number]/CPS #: [id number] ALEX
[2018-02-02 04:34] LABS: Urine Appearance Clear; Urine Blood Negative (Negative); Urine Color Yellow; Urine Ketones Negative (Negative); Urine Protein Negative (Negative); Urine Red Blood Cell Absent (Absent); Urine Urobilinogen Negative (Negative); Urine White Blood Cell 1+(6-10/hpf) (Absent)
[2018-02-02] MEDS: Levothyroxine TAB* 75 MCG TAB PO SCH (05:54)
[2018-02-02 06:10] LABS: ABS Basophils 0 10^3/ul (0-0.2); ABS Eosinophils 0.2 10^3/ul (0-0.6); ABS Lymphocytes 2.2 10^3/ul (1.0-4.8); ABS Monocytes 0.7 10^3/ul (0-0.8); ABS Neutrophils 3.2 10^3/ul (1.5-7.7); ABS Nucleated RBC 0 10^3/ul; Eosinophil % 2.7 % (0-6); Hematocrit 34 % (35-47); Hemoglobin 11.7 g/dl (12.0-16.0); Lymphocyte % 34.7 % (25-47); Mean Corpuscular HGB Conc 35 g/dl (31-36); Mean Corpuscular Hemoglobin 32 pg (27-31); Mean Corpuscular Volume 92 fL (80-97); Mean Platelet Volume 10.8 um3 (7.4-10.4); Nucleated Red Blood Cells % 0.1; Platelet Count 140 10^3/ul (150-450); Red Blood Count 3.68 10^6/ul (4.00-5.40); Red Cell Distribution Width 14 % (10.5-15); White Blood Count 6.3 10^3/ul (3.5-10.8)
[2018-02-02 06:25] LABS: EGFR Non-African American 53.4 (>60)
[2018-02-02] MEDS ORDERED: Amiodarone TAB* 200 MG PO SCH (09:00)
--- NOTE | 2018-02-02 10:09 | CONSULT ---
Consult Consult: Surgery Consult. Asked by Jackie Ponce to follow a pt. with pSBO. Ms. Wheat is an 87 y.o. female who reports she started to feel vaguely ill yesterday. She came home from a shopping trip with her daughter, took a nap, then woke up with "excruciating" upper abdominal pain. When her daughter checked on her she was "doubled over in pain" so she called 911. She has not been passing flatus since then till this morning when she passed a little; she had not had a BM; she vomited a lot of black stuff before she got picked up by the ambulance. She denies fever or dysuia. This has never happened before. In the ER a CT showed dilated loops of SB and she was admitted with pSBO. She feels better this morning. She has a past surgical h/o appendectomy (in 3rd grade); hernia repair (while in school); excision subcutaneous mass. PMHx: afib, HTN, "thyroid problems" Meds: see med rec., includes anticoagulation ALL: cipro, flu vaccines SH: neg tob, EtOH, IVDA FH: CAD PE: general: WDWN elderly female in NAD Vital Signs 02/01/18 02/01/18 02/01/18 20:05 20:06 20:12 Temperature 98.3 F Pulse Rate 84 64 67 Respiratory 20 16 15 Rate Blood Pressure 165/97 165/97 (mmHg) O2 Sat by Pulse 99 95 95 Oximetry 02/01/18 02/01/18 02/01/18 20:41 21:00 21:11 Temperature Pulse Rate 59 59 53 Respiratory 15 17 19 Rate Blood Pressure 164/85 176/75 (mmHg) O2 Sat by Pulse 91 90 98 Oximetry 02/01/18 02/01/18 02/01/18 21:41 22:00 22:12 Temperature Pulse Rate 56 61 58 Respiratory 16 17 13 Rate Blood Pressure 181/70 173/82 (mmHg) O2 Sat by Pulse 98 98 99 Oximetry 02/01/18 02/01/18 02/01/18 22:45 23:00 23:27 Temperature 98.8 F Pulse Rate 67 54 78 Respiratory 21 16 20 Rate Blood Pressure 205/98 158/78 (mmHg) O2 Sat by Pulse 98 98 99 Oximetry 02/02/18 02/02/18 02/02/18 00:00 03:10 07:29 Temperature 98.8 F 99.5 F 97.5 F Pulse Rate 78 53 45 Respiratory 20 16 16 Rate Blood Pressure 158/78 123/51 120/45 (mmHg) O2 Sat by Pulse 99 94 97 Oximetry 02/02/18 08:47 Temperature Pulse Rate 43 Respiratory Rate Blood Pressure (mmHg) O2 Sat by Pulse Oximetry HEENT: anicteric sclerae, moist oral mucosa, neg cervical adenopathy lungs: clear heart: reg abd: some BS, slightly distended, non-tender; scar in RLQ, well healed with some contracture. ext: neg. cyanosis Intake & Output 02/01/18 02/02/18 02/02/18 22:59 06:59 14:59 Intake Total 0 Output Total 0 Balance 0 Weight 120 lb 134 lb 9.6 oz Intake: Oral 0 Output: Urine 0 Other: Estimated Void Medium # Voids 1 Laboratory Results - last 24 hr 02/01/18 02/01/18 02/01/18 20:21 20:21 20:21 WBC 10.5 RBC 4.01 Hgb 12.6 Hct 37 MCV 93 MCH 31 MCHC 34 RDW 13 Plt Count 160 MPV 10.7 H Neut % (Auto) 74.3 Lymph % (Auto) 15.7 L [place] % (Auto) 6.8 Eos % (Auto) 2.3 Baso % (Auto) 0.9 Absolute Neuts (auto) 7.8 H Absolute Lymphs (auto) 1.7 Absolute Monos (auto) 0.7 Absolute Eos (auto) 0.2 Absolute Basos (auto) 0.1 Absolute Nucleated RBC 0 Nucleated RBC % 0 Sodium 138 Potassium 3.8 Chloride 106 Carbon Dioxide 26 Anion Gap 6 BUN 17 Creatinine 0.94 Est GFR ( Amer) 67.8 Est GFR (Non-Af Amer) 56.1 BUN/Creatinine Ratio 18.1 Glucose 100 Lactic Acid 0.7 Calcium 9.5 Total Bilirubin 0.60 AST 16 ALT 6 L Alkaline Phosphatase 57 Total Protein 6.9 Albumin 3.6 Globulin 3.3 Albumin/Globulin Ratio 1.1 Lipase 21 Urine Color Urine Appearance Urine pH Ur Specific [place] Urine Protein Urine Ketones Urine Blood Urine Nitrate Urine Bilirubin Urine Urobilinogen Ur Leukocyte Esterase Urine WBC (Auto) Urine RBC (Auto) Ur Squamous Epith Cells Urine Bacteria Urine Glucose Blood Type Antibody Screen 02/01/18 02/02/18 02/02/18 20:21 04:07 05:51 WBC 6.3 RBC 3.68 L Hgb 11.7 L Hct 34 L MCV 92 MCH 32 H MCHC 35 RDW 14 Plt Count 140 L MPV 10.8 H Neut % (Auto) 51.8 Lymph % (Auto) 34.7 [place] % (Auto) 10.4 H Eos % (Auto) 2.7 Baso % (Auto) 0.4 Absolute Neuts (auto) 3.2 Absolute Lymphs (auto) 2.2 Absolute Monos (auto) 0.7 Absolute Eos (auto) 0.2 Absolute Basos (auto) 0 Absolute Nucleated RBC 0 Nucleated RBC % 0.1 Sodium Potassium Chloride Carbon Dioxide Anion Gap BUN Creatinine Est GFR ( Amer) Est GFR (Non-Af Amer) BUN/Creatinine Ratio Glucose Lactic Acid Calcium Total Bilirubin AST ALT Alkaline Phosphatase Total Protein Albumin Globulin Albumin/Globulin Ratio Lipase Urine Color Yellow Urine Appearance Clear Urine pH 5.0 Ur Specific [place] 1.010 Urine Protein Negative Urine Ketones Negative Urine Blood Negative Urine Nitrate Negative Urine Bilirubin Negative Urine Urobilinogen Negative Ur Leukocyte Esterase Trace A Urine WBC (Auto) 1+(6-10/hpf) A Urine RBC (Auto) Absent Ur Squamous Epith Cells Present A Urine Bacteria Absent Urine Glucose Negative Blood Type B Positive Antibody Screen Negative 02/02/18 05:51 WBC RBC Hgb Hct MCV MCH MCHC RDW Plt Count MPV Neut % (Auto) Lymph % (Auto) [place] % (Auto) Eos % (Auto) Baso % (Auto) Absolute Neuts (auto) Absolute Lymphs (auto) Absolute Monos (auto) Absolute Eos (auto) Absolute Basos (auto) Absolute Nucleated RBC Nucleated RBC % Sodium 141 Potassium 4.3 Chloride 109 Carbon Dioxide 27 Anion Gap 5 BUN 16 Creatinine 0.98 H Est GFR ( Amer) 64.7 Est GFR (Non-Af Amer) 53.4 BUN/Creatinine Ratio 16.3 Glucose 79 Lactic Acid Calcium 9.2 Total Bilirubin AST ALT Alkaline Phosphatase Total Protein Albumin Globulin Albumin/Globulin Ratio Lipase Urine Color Urine Appearance Urine pH Ur Specific [place] Urine Protein Urine Ketones Urine Blood Urine Nitrate Urine Bilirubin Urine Urobilinogen Ur Leukocyte Esterase Urine WBC (Auto) Urine RBC (Auto) Ur Squamous Epith Cells Urine Bacteria Urine Glucose Blood Type Antibody Screen A/P: Agree with diagnosis of pSBo. Will follow; consider AXR to better f/u progression of improvement. CLFoster
--- NOTE | 2018-02-02 12:13 | RAD ---
INDICATION: Follow-up small bowel obstruction COMPARISON: CT abdomen pelvis February 01, 2018 TECHNIQUE: 2 views the abdomen were obtained. FINDINGS: There are multiple loops of air-filled small and large bowel seen at the left of midline abdomen a proximally corresponding to the findings on the previous CT examination. At the left upper quadrant there is an air-filled loop of small bowel measuring up to 3.4 cm in diameter similar to the previous CT examination. There is no evidence of free intraperitoneal air. IMPRESSION:DILATED LOOPS OF AIR-FILLED SMALL BOWEL MEASURING UP TO 3.4 CM IN DIAMETER. GIVEN DIFFERENCES IN TECHNIQUE THIS IS UNCHANGED SINCE THE PREVIOUS DAY CT.
--- NOTE | 2018-02-02 12:51 | PN ---
Subjective Date of Service: 02/02/18 Interval History: Patient has only slight residual pain in abdomen. Denies N/V. Able to tolerate medications and small amounts of ice chips. Denies F/C, CP, SOB, passing small amounts of flatus, denies dysuria, dizziness, or other pain. Family History: Unchanged from Admission Social History: Unchanged from Admission Past Medical History: Unchanged from Admission Objective Active Medications: Amiodarone HCl (Cordarone Tab*) 200 mg PO BID [facility] Last Admin: 02/02/18 09:42 Dose: Not Given Lactated Ringer's (Lactated Ringers 1000 Ml Bag*) 1,000 mls @ 75 mls/hr IV PER RATE [facility] Last Admin: 02/02/18 12:32 Dose: 75 mls/hr Levothyroxine Sodium (Synthroid Tab*) 75 mcg PO 0600 [facility] Last Admin: 02/02/18 05:54 Dose: 75 mcg Morphine Sulfate (Morphine Vial*) 4 mg IV Q4H PRN PRN Reason: PAIN - MILD Ondansetron HCl (Zofran Inj*) 4 mg IV Q6H PRN PRN Reason: NAUSEA Vital Signs - 8 hr 02/02/18 02/02/18 02/02/18 07:29 08:00 08:47 Temperature 97.5 F Pulse Rate 45 43 Respiratory 16 16 Rate Blood Pressure 120/45 (mmHg) O2 Sat by Pulse 97 Oximetry Oxygen Devices in Use Now: None Appearance: Patient is an 87yo female who appears stated age and is sitting in the bed in [facility]. Eyes: No Scleral Icterus, PERRLA Ears/Nose/Mouth/Throat: NL Teeth, Lips, Gums, Clear Oropharnyx, Mucous Membranes Moist Neck: NL Appearance and Movements; NL JVP, Trachea Midline Respiratory: Symmetrical Chest Expansion and Respiratory Effort, Clear to Auscultation Cardiovascular: NL Sounds; No Murmurs; No JVD, RRR, No Edema Abdominal: No Hepatosplenomegaly, - - Normoactive bowel sounds of normal quality. Slight tenderness to palpation in the RUQ. Lymphatic: No Cervical Adenopathy Extremities: No Edema, No Clubbing, Cyanosis Skin: No Rash or Ulcers, No Nodules or Sclerosis Neurological: Alert and Oriented x 3, NL Sensation, NL Gait, NL Muscle Strength and Tone, - - CN II-XII intact. Result Diagrams: 02/02/18 05:51 02/02/18 05:51 Assess/Plan/Problems-Billing Assessment: Patient is an 87yo female with a PMH for Afib, Appendectomy, and multiple other intrabdominal surgeries who is admitted with abdominal pain, nausea, vomiting and abdominal imaging consistent with small bowel obstruction which is improving. - Patient Problems (1) Partial small bowel obstruction Current Visit: Yes Status: Acute Code(s): K56.600 - PARTIAL INTESTINAL OBSTRUCTION, UNSPECIFIED TO CAUSE SNOMED Code(s): 111167807 Comment: Abdominal pain improved but still present. Passing small amount of flatus. No BM, No Appetite, no changes in dilation on KUB. Continue NPO, Fluid, Conservative treatment. Appreciate Surgical Consult. (2) Afib Current Visit: No Status: Acute Code(s): I48.91 - UNSPECIFIED ATRIAL FIBRILLATION SNOMED Code(s): 27231105 Comment: NSR, On Amiodarone. Held due to bradycardia. Asymptomatic. Eliquis held in hospital while in NSR and possible need for surgery. (3) Hypertension Current Visit: No Status: Chronic Code(s): I10 - ESSENTIAL (PRIMARY) HYPERTENSION SNOMED Code(s): 87568018 Comment: Continue Ramipril. Was hypertensive overnight. (4) Hypothyroid Current Visit: No Status: Chronic Code(s): E03.9 - HYPOTHYROIDISM, UNSPECIFIED SNOMED Code(s): 37337362 Comment: Continue Levothyroxine. (5) DNR (do not resuscitate) Current Visit: No Status: Acute (6) DVT prophylaxis Current Visit: No Status: Acute Code(s): MXS7538 - SNOMED Code(s): 528658212 Comment: SCDs in setting of SBO possibly necessitating surgery. Status and Disposition: Inpatient.
[2018-02-02] MEDS: Ramipril CAP* 10 MG PO SCH (16:20)
[2018-02-03] MEDS: Levothyroxine TAB* 75 MCG TAB PO SCH (05:47)
[2018-02-03 06:04] LABS: Hematocrit 35 % (35-47); Hemoglobin 12.1 g/dl (12.0-16.0); Mean Corpuscular HGB Conc 34 g/dl (31-36); Mean Corpuscular Hemoglobin 32 pg (27-31); Mean Corpuscular Volume 92 fL (80-97); Mean Platelet Volume 10.3 um3 (7.4-10.4); Platelet Count 130 10^3/ul (150-450); Red Blood Count 3.84 10^6/ul (4.00-5.40); Red Cell Distribution Width 13 % (10.5-15); White Blood Count 5.3 10^3/ul (3.5-10.8)
[2018-02-03 06:16] LABS: ABS Basophils 0 10^3/ul (0-0.2); ABS Eosinophils 0.2 10^3/ul (0-0.6); ABS Lymphocytes 1.8 10^3/ul (1.0-4.8); ABS Monocytes 0.6 10^3/ul (0-0.8); ABS Neutrophils 2.7 10^3/ul (1.5-7.7); ABS Nucleated RBC 0 10^3/ul
[2018-02-03 06:21] LABS: EGFR Non-African American 60.5 (>60)
[2018-02-03 06:43] LABS: Lymphocyte % 34.3 % (25-47); Nucleated Red Blood Cells % 0.1
[2018-02-03] MEDS: Ramipril CAP* 10 MG PO SCH (08:10)
--- NOTE | 2018-02-03 08:53 | PN ---
Progress Note - Progress Note Date of Service: 02/03/18 Note: Surgery Ms. Wheat says she feels good and is tolerating clear liquids. However, she has not passed any further flatus and has not had a BM. She denies pain. Vital Signs 02/02/18 02/02/18 02/02/18 11:27 15:46 18:42 Temperature 97.2 F 97.7 F 98.3 F Pulse Rate 44 53 54 Respiratory 16 16 16 Rate Blood Pressure 177/53 158/66 143/59 (mmHg) O2 Sat by Pulse 96 94 93 Oximetry 02/02/18 02/02/18 02/03/18 20:00 23:17 03:04 Temperature 98.6 F 98.4 F Pulse Rate 54 57 Respiratory 18 16 16 Rate Blood Pressure 132/62 151/66 (mmHg) O2 Sat by Pulse 93 90 Oximetry 02/03/18 07:47 Temperature 97.2 F Pulse Rate 60 Respiratory 16 Rate Blood Pressure 159/68 (mmHg) O2 Sat by Pulse 98 Oximetry Abd: protruberant, soft, non-tender, Good BS Intake & Output 02/02/18 02/03/18 02/03/18 22:59 06:59 14:59 Intake Total 303 758 Output Total 500 500 Balance -197 258 Intake: IV Fluids 303 758 ALL FLUIDS 303 LR 758 Oral 0 0 Output: Urine 500 500 Other: # Bowel Movements 0 Laboratory Results - last 24 hr 02/03/18 02/03/18 05:44 05:44 WBC 5.3 RBC 3.84 L Hgb 12.1 Hct 35 MCV 92 MCH 32 H MCHC 34 RDW 13 Plt Count 130 L MPV 10.3 Neut % (Auto) 50.7 Lymph % (Auto) 34.3 [place] % (Auto) 10.5 H Eos % (Auto) 4.0 Baso % (Auto) 0.5 Absolute Neuts (auto) 2.7 Absolute Lymphs (auto) 1.8 Absolute Monos (auto) 0.6 Absolute Eos (auto) 0.2 Absolute Basos (auto) 0 Absolute Nucleated RBC 0 Nucleated RBC % 0.1 Sodium 139 Potassium 4.0 Chloride 108 Carbon Dioxide 27 Anion Gap 4 BUN 15 Creatinine 0.88 Est GFR ( Amer) 73.2 Est GFR (Non-Af Amer) 60.5 BUN/Creatinine Ratio 17.0 Glucose 66 L Calcium 9.2 Magnesium 1.9 AXR yesterday showed more gas into colon, but still some dilated SB loops. A/P: Slow to improve. Will order abdominal films for today. CLFoster
--- NOTE | 2018-02-03 11:00 | RAD ---
Indication: Evaluate small bowel obstruction. Comparison: February 02, 2018 Abdomen radiograph and February 01, 2018 CT. Technique: Supine and upright views of the abdomen. Report: Only mild dilatation of small bowel loops evident with further interval decrease compared with the February 02, 2018 exam. Negative for free air. Negative for mass effect. Atherosclerotic calcification of the abdominal aorta and iliac arteries. IMPRESSION: #. Further interval resolution of small bowel obstruction.
[2018-02-03 15:55] VITALS: BP 137/57
[2018-02-03] MEDS ORDERED: Amiodarone TAB* 200 MG PO SCH (21:00)
--- NOTE | 2018-02-05 13:32 | DS ---
CC: Dr. Heart * DISCHARGE SUMMARY: DATE OF ADMISSION: 02/01/18 DATE OF DISCHARGE: 02/03/18 PRIMARY CARE PROVIDER: Dr. Heart. MY ATTENDING WHILE IN THE HOSPITAL: Holly Mitchell DO.* (DICTATED BY JONYN HAWLEY) PRIMARY DISCHARGE DIAGNOSIS: Partial small bowel obstruction. SECONDARY DISCHARGE DIAGNOSES: 1. Paroxysmal atrial fibrillation, currently normal sinus rhythm, on Eliquis and amiodarone. 2. Hypothyroidism. 3. Hypertension. STUDIES DONE WHILE IN THE HOSPITAL: Abdomen and pelvis CT from 02/01/18 read as there is calcified atherosclerosis, but no pathologic aneurysmal dilatation of the abdominal aorta, cannot be made in the absence of intravascular contrast. Pathologically, dilated small bowel up to 3.5 cm in diameter with multiple air- fluid levels. Please correlate clinical signs and symptoms of partial small bowel obstruction, degenerative changes described in the body of the report. Electrocardiogram from 02/01/18 shows normal sinus rhythm. T-wave inversions in V2, V3, and V4. Rate of 61, QTc of 433. Single PVC, no acute change. No hypertrophy, enlargement. Right bundle-branch block. No other abnormalities. Repeat EKG from 02/02/18 shows normal sinus rhythm, persistent T-wave inversions, no other significant changes, rate of 46, QTc of 418. Abdomen x-ray on 02/02/18 read as dilated loops of air-filled small bowel measuring up to 3.5 cm in diameter. Given different testing techniques, this is unchanged from previous day CT. Abdomen x-ray from 02/03/18 read as further interval resolution of small bowel obstruction. MEDICATIONS AT DISCHARGE: 1. Levothyroxine 75 mcg p.o. q.a.m. 2. Aspirin 81 mg p.o. daily. 3. Memantine 5 mg p.o. b.i.d. 4. Amiodarone 200 mg p.o. b.i.d. 5. Ramipril 10 mg p.o. daily. 6. Apixaban 2.5 mg p.o. b.i.d. HOSPITAL COURSE: This is a brief summary of the patient's presentation. For more details, please see the history and physical from Jackie Ponce NP, on . In brief, the patient is an 87-year-old female with past medical history significant for the above, who was in her own state of health, the patient was very active and developed severe abdominal pain with nausea and vomiting at about 5:00 on the day of presentation. The patient has a history of multiple abdominal surgeries. The patient attempted to go back to her daily routine, but was unable to due to nausea and vomiting. She denied any blood in her vomit. Did not have any diarrhea. She did have a bowel movement on the day of presentation. The patient has never had anything like this before. The patient came to the emergency department and had a CT of the abdomen, which showed a partial small bowel obstruction. The patient's laboratory data was unremarkable. Urine was nonsuspicious for UTI. The patient's abdominal pain improved greatly from 02/01/18 to 02/02/18. The patient had no nausea, no vomiting, only minor right upper quadrant pain on that day. On 02/02/18, the patient was seen in consultation by Dr. Suad Mathew of General Surgery who agreed with small bowel obstruction, recommend conservative therapy, and following abdominal x-rays. The patient's abdominal x-ray on 02/02/18 showed no resolution of small bowel obstruction. The patient was kept n.p.o. for this time. The patient was maintained on normal saline. The patient continued to be asymptomatic into 02/03/18 and tolerated clear liquid diet for breakfast, had a repeat abdominal x-ray, which showed resolution of her small bowel obstruction. The patient was able to tolerate solid foods for lunch and was stable and amenable for discharge on 02/03/18. The patient had several episodes of bradycardia that was asymptomatic with rates into the high 40s while she is in the hospital, though her pulse rate generally stayed between 50 and 70. PHYSICAL EXAM ON THE DAY OF DISCHARGE: General: The patient is an 87-year-old female who appears younger than stated age, sitting comfortably in the bed, in no acute distress. Vital Signs: Temperature 97.8, pulse rate 48, respiratory rate 18, oxygen saturation 98% on room air, blood pressure 137/57. HEENT: Head : Normocephalic, atraumatic. Sclerae anicteric. No conjunctival injection. Nasal mucosa is moist. Oral mucosa moist. No pharyngeal erythema, discharge, or exudate. Neck: Supple, nontender. No lymphadenopathy. No carotid bruits auscultated. No JVD. Cardiac: Regular rate and rhythm. No clicks, murmurs, gallops, or rubs. Pulses 2+ in the bilateral dorsalis pedis, posterior tibialis , and radial areas. Respiratory: Clear to auscultation bilaterally. No wheezes, rales, or rhonchi. Good air exchange bilaterally. Abdomen: Soft, nontender, nondistended. Bowel sounds present, normoactive in all 4 quadrants. Normal quality of the sounds. Slight tenderness to palpation in the right upper quadrant. Negative Dewitt sign. Genitourinary: No suprapubic or CVA tenderness. Skin: Clean, dry, intact. No rash. Neuro: Cranial nerves II through XII intact. No focal deficits. Alert and oriented x3. Psychiatric: Pleasant and cooperative. LABORATORY DATA: On the day of discharge, white blood cell count 5.3, hemoglobin 12.1, hematocrit 35, platelet count 130. Sodium 139, potassium 4.0, chloride 108, carbon dioxide 27, anion gap 4, BUN 15, creatinine 0.88, glucose 66, calcium 9.2, magnesium 1.9. DISCHARGE PLAN: The patient's small bowel obstruction has resolved. The patient had no other medical conditions necessitating medical intervention while in the hospital. The patient has asymptomatic bradycardia. The patient should follow up with her television repairman, Dr. Hawley, and discussed this and the appropriateness of further amiodarone therapy should her bradycardia continue to evolve. The patient should follow up with her primary care provider in 1 week for general medical management and to monitor for continued resolution of her small bowel obstruction. The patient's should engage in activity as tolerated and initially start with soft diet and advance as tolerated to a heart -healthy diet, caffeine-okay. TIME SPENT: Approximately 60 minutes were spent on this discharge, 30 of which were spent [id number] with the patient obtaining history and physical and discussing treatment plan. JONNY HAWLEY [id number]/CPS #: [id number] MTDD
== END 2018-02-03 16:00 | disposition home or self-care (01) | DRG 390 ==
LOC: ED 20:01 → MED 21:28
PROVIDERS: ADMIT Hospitalist; ATTEND Hospitalist
DX: K56.690 Other partial intestinal obstruction (principal); I48.0 Paroxysmal atrial fibrillation; I45.10 Unspecified right bundle-branch block; E03.9 Hypothyroidism, unspecified; E78.00 Pure hypercholesterolemia, unspecified; I10 Essential (primary) hypertension; R00.1 Bradycardia, unspecified; Z66 Do not resuscitate; Z79.01 Long term (current) use of anticoagulants; Z88.1 Allergy status to other antibiotic agents; Z88.7 Allergy status to serum and vaccine; Z88.8 Allergy status to other drugs, medicaments and biological substances; Z98.42 Cataract extraction status, left eye; Z82.49 Family history of ischemic heart disease and other diseases of the circulatory system; Z98.41 Cataract extraction status, right eye; Z79.82 Long term (current) use of aspirin
CPT/HCPCS: 36415; 74018; 74019; 74176; 80048; 80053; 81003; 81015; 83605; 83690; 83735; 85025; 86850; 86900; 86901; 87086; 93005; 99284; A9270-GY; J2270; J2405